=== PATIENT | male | born 2005 | race Caucasian/White ===

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

== ENCOUNTER 2024-05-11 15:25 | Emergency (ER) | payer BC, OTHER, SELFPAY ==
[2024-05-11 15:28] VITALS: BP 122/82
--- NOTE | 2024-05-11 15:44 | ED.GENMED ---
History of Present Illness
General
Chief Complaint: Catheter/Tube Problem
Source: patient, records and family
Exam Limitations: none
Time Seen by Provider: 05/11/24 15:35
Nursing documentation reviewed up to this point in time: agreed with
History of Present Illness
History of Present Illness:
18-year-old male with history of gastroparesis/chronic nausea and vomiting and chronic PICC line with TPN dependence to maintain weight presents to the emergency room with his parents for evaluation of PICC line occlusion. Patient reports that
about 5 days ago he started to have an issue where TPN pump would alarm and flow through his PICC line halted. It sounds like this has been a positional issue it seems to be somewhat worse when he lays on the left side. Somewhat better when he
lays flat on his back. Estimates that he is only got about 50% of the total amount of TPN that he is supposed over the past 5 days. He did go to urgent care today where he had an x-ray that confirmed appropriate placement; apparently they were
able to flush the PICC line but it was positional at urgent care and so he was referred to the ER to be evaluated. He denies any pain or swelling in the arm. Denies any physical complaints. PICC was placed by interventional radiology, last
exchange was 12/18/2023�originally PICC was on the right side but it was switched over to the left side due to difficulties with venous spasm at the time of catheter exchange.
Review of Systems
Review of Systems
All Other Systems: ROS reviewed and negative except as documented in HPI and ROS
Musculoskeletal: Denies joint pain, muscle pain or edema
Skin: Denies rash
Phy Exam
Physical Exam
Physical Exam:
General: Well appearing and non-toxic
HEENT: protecting airway
Neck: appears supple
CV: No evidence of cyanosis
Resp: No accessory muscle use
Abd: Non-distended
Extremities: No edema in the left upper extremity, good strong left radial pulse; has a PICC line in place left upper extremity 4 Danish single-lumen with no erythema, warmth, tenderness or induration around insertion site
Neuro: Alert
Psych: Normal affect
Skin: Intact
Scores
Heart Failure Risk
Heart Failure Risk Score: Not Applicable
Heart Score for Chest Pain Patients
STEMI patient?: Not applicable
Withdrawal Assessment of Alcohol
Withdrawal Assessment Completed?: Not applicable
Course
Orders/Labs/Results
Orders:
Orders
05/11/24 16:01
0.9% Sodium Chloride 1000 ml [Nss] 1,000 ml IV BOLUS
05/11/24 16:06
[facility] CONSULT Urgent
Consulting Provider: David Massey
Was physician already notified: Yes
Reason for Consult/Procedure: PICC replacement
Acknowledgement that appropriate orders are entered: Yes
05/11/24 17:07
PICC Line As Directed
Comment: remove LUE PICC and place RUE PICC
05/11/24 18:08
CR Chest - 2 Views Urgent
Comment:
Reason For Exam: PICC placement
05/11/24 19:00
Dextrose 5%/0.45%Sodchl 1000ML [D5/0.45%NaCl] 1,000 ml IV 125 mls/hr
Vital Signs
Initial and Last Documented VS:
Initial Vital Signs
Temp Pulse Resp BP Pulse Ox
36.7 C 73 16 122/82 98
05/11/24 15:28 05/11/24 15:28 05/11/24 15:28 05/11/24 15:28 05/11/24 15:28
Last Documented Vital Signs
Temp Pulse Resp BP Pulse Ox
36.7 C 73 16 121/83 98
05/11/24 15:28 05/11/24 15:28 05/11/24 15:28 05/11/24 18:39 05/11/24 15:28
MDM/Problems Addressed
Differential Diagnosis Includes:
PICC line occlusion
MDM/Problems Addressed:
18-year-old male presents with PICC line issue/occlusion�is having positional flow in the left upper extremity PICC line for 5 days. Had chest x-ray prior to arrival to urgent care which confirmed placement�disc available and we will upload it to
review. Contacted IV team to troubleshoot line. Will reassess after the above.
Reviewed x-ray of the chest and humerus and line appears intact and in place with tip terminating SVC. IV team down to bedside able to flush line but it is somewhat positional. Case discussed with IR to consider exchange.
Discussed with IR they will exchange PICC today. Discharge pending PICC exchange.
Discussed with [facility] physician as well as IV team and apparently there is an IV nurse that is available to exchange PICC in the ER. Will arrange for ER exchange.
IV team was able to exchange PICC line�attempted to place in the right upper extremity but unable to pass wire so it was replaced once again of the left upper extremity. Flushing freely. We were able to give a liter of fluid here. Chest x-ray
confirms appropriate positioning. Stable for discharge.
Chronic conditions affecting care:
Gastroparesis and TPN dependence
*Radiology
Radiology exam reviewed: preliminary read by ED provider
*Pulse Oximetry
Patient hypoxic: no
*Critical Care Note
Total Time (30-74mins, 75-104mins- exclusive of procedures): Not Applicable
Data Reviewed
Review of Other/Old Records Reveals: Labs and Records
Source: patient, records and family
Patient Management
Discussion with other providers: Sales And Marketing Professional (Discussed with interventional radiology)
ED Attending Note
-
Portions of this chart may have been created with voice recognition software.� Occasional wrong word or��sound alike� substitutions may have occurred due to the inherent limitations of voice recognition software.
Discharge Plan
Departure
Patient Disposition: Home (Routine Discharge)
Date of Disposition: 05/11/24
Time of Disposition: 18:50
Patient with high blood pressure during this ER visit?: No
Discharge Problem:
Occluded PICC line
Instructions: Peripherally-Inserted Central Catheter (DC)
Prescriptions:
No Action
Activated Charcoal [Charcoal, Activated] 280 MG Capsule
280 mg PO DAILY
clarithromycin 500 MG tablet
500 mg PO BID
nystatin 500,000 UNIT tablet
1,000,000 unit PO BID
niacin 50 MG tablet
25 mg PO DAILY
carvedilol 3.125 MG tablet
3.125 mg PO BID
colesevelam [WelChol] 625 MG tablet
312.5 mg PO DAILY
cholecalciferol (vitamin D3) 2,000 UNITS tablet
2,000 units PO DAILY
testosterone cypionate 50 MG/ML oil
0.25 ml SC WEEKLY
Activity Restrictions/Additional Instructions:
Thank you for visiting the Emergency Department at [facility].
1. Please schedule a follow up appointment as directed. Call first thing tomorrow morning to make an appointment.
2. If indicated, please take your medications as instructed and indicated on discharge paperwork.
3. If any of your symptoms do not improve, or persist, or become more severe within 6-12 hours, please return to the emergency department for further care.
4. Please return to the emergency department if you develop a headache, neck pain/stiffness, fever greater than 100.4F, chest pain, shortness of breath, persistent nausea, vomiting, slurred speech, difficulty walking, numbness/tingling, weakness,
signs of infection or any other symptoms that are worrisome to you.
Please call [phone] if you have any questions.
Interventions
Interventions:
*Risk Screen - Suicide Last Done: 05/11/24 18:20
*General Assessment Last Done: 05/11/24 15:49
*Neglect/Abuse Screening Last Done: 05/11/24 15:49
ED- Fall Risk Assessment Last Done: 05/11/24 15:49
*ED COVID-19 Vaccine History Last Done: 05/11/24 15:49
LG-Mdzwoj-Osrmxlldlq Assessment Last Done: 05/11/24 15:49
ED-Male Genitourinary Assessment Last Done: 05/11/24 15:49
Discharge Date and Time
Print Language: KOSOVAN
--- NOTE | 2024-05-11 16:10 | VATNOTE ---
Called to assess Left PICC as patient and parents state they are having difficulty with TPN infusion at night, pumps are alarming occlusion. They have tried changing pumps and tubings and still having the issue. PICC flushes easily with brisk blood
return, Xrays show no kinking in the PICC and tip placement is in the SVC. Physician to contact IR for further evaluation.
[2024-05-11] MEDS: NSS 1000 IV (16:22)
[2024-05-11 16:46] VITALS: BMI 22.0
--- NOTE | 2024-05-11 18:31 | VATNOTE ---
Attempted to place PICC in right arm unable to advance guide wire. Left PICC exchanged for a new PICC
[2024-05-11 18:39] VITALS: BP 121/83
== END 2024-05-11 18:54 | disposition home or self-care (01) ==
LOC: EMR 15:25
PROVIDERS: CONSULT PHYSICIAN Radiology Diagnostic Radiology; EMERGENCY PHYSICIAN Emergency Medicine; FAMILY PHYSICIAN Family Medicine
DX: Z45.2 Encounter for adjustment and management of vascular access device (principal); K31.84 Gastroparesis; R11.2 Nausea with vomiting, unspecified; G90.A Postural orthostatic tachycardia syndrome [POTS]; M41.9 Scoliosis, unspecified; Z90.49 Acquired absence of other specified parts of digestive tract; Z90.13 Acquired absence of bilateral breasts and nipples; Z88.8 Allergy status to other drugs, medicaments and biological substances
CPT/HCPCS: 99284; 96360; 71046

== ENCOUNTER → 2024-06-11 10:34 | Outpatient (REF) | payer BC, OTHER, SELFPAY ==
[2024-06-11 10:59] VITALS: BP 123/76; BP_SYST 65
== END ==
LOC: RADI 10:34
PROVIDERS: ATTENDING PHYSICIAN Pediatrics; FAMILY PHYSICIAN Family Medicine
DX: T82.594A Other mechanical complication of infusion catheter, initial encounter (principal); Y82.8 Other medical devices associated with adverse incidents
CPT/HCPCS: 36558; 76937; 77001; 99152; 99153

== ENCOUNTER 2025-04-16 23:32 | Inpatient (IN) | payer BC, OTHER, SELFPAY ==
[2025-04-16 19:57] VITALS: BP 121/89
[2025-04-16 20:29] LABS: Hematocrit 41.2 % (39.0-52.0); Hemoglobin 14.0 g/dL (13.0-18.0); Mean Corp Hgb Conc. 34.0 g/dL (33.0-37.0); Mean Corpuscular Volume 84.8 fL (80.0-94.0); Platelet Count 225 10^3/uL (130-400); Red Cell Dist. Width 12.0 % (11.5-14.5)
[2025-04-16 20:40] LABS: ALT (SGPT) 26 U/L (0-50); AST (SGOT) 25 U/L (17-59); Albumin 4.7 g/dl (3.5-5.0); Alkaline Phosphatase 128 U/L (38-126); Blood Urea Nitrogen 13 mg/dl (9-20); Calcium 9.8 mg/dl (8.4-10.2); Carbon Dioxide 27 mmol/L (22-30); Chloride 103 mmol/L (98-107); Glucose 86 mg/dl (70-99); Potassium 4.1 mmol/L (3.5-5.1); Sodium 141 mmol/L (135-145); Total Protein 9.0 g/dl (6.3-8.2); eGFR > 60.00
[2025-04-16 20:47] LABS: Nucleated Red Blood Cells % 0 % (-)
[2025-04-16 21:22] VITALS: BP 123/80
[2025-04-16 21:30] VITALS: BMI 20.8
[2025-04-16 22:04] LABS: C-Reactive Protein 66.00 mg/L (0.0-10.00)
--- NOTE | 2025-04-16 22:47 | ED.GENMED ---
History of Present Illness
General
Chief Complaint: Cold/Flu/URI Symptoms
Source: patient
Exam Limitations: none
Time Seen by Provider: 04/16/25 20:24
Nursing documentation reviewed up to this point in time: agreed with
History of Present Illness
History of Present Illness:
Note:
CHIEF COMPLAINT(S)
Fever and central line in situ.
HISTORY OF PRESENT ILLNESS
The patient is a 19-year-old male presenting with fever persisting for the past few days and a central line due to regular blood transfusions. The patient began antibiotic treatment today with doxycycline. The central line was last changed during
the patients previous hospital visit. The patient reports no prior infections related to the central line, and it appears normal upon inspection. The patient is undergoing evaluation for potential pneumonia or other infections, with plans for a
chest X-ray. The patient mentioned the completion of a recent steroid treatment cycle. Laboratory results indicate a white blood cell count of 11.8 K/uL, which could relate to the patients transfusions but is not alarmingly high. Blood cultures are
to be sent for analysis, acknowledging the possible influence of antibiotics on the culture results.
REVIEW OF SYSTEMS
- General: Fever present for the past few days.
- Infectious Diseases: The potential risk of central line-associated infection, considering the current fever.
- Hematology: Recent blood transfusions.
- Pulmonary: Concerns for possible pulmonary infection, with diagnostic imaging planned.
PHYSICAL EXAM
General: Alert, no acute distress.
Skin: Warm, dry.
Head: Normocephalic, atraumatic.
Neck: Supple, trachea midline.
Eye Ears, Nose, Mouth, and Throat: Oral mucosa moist.
Cardiovascular: Normal peripheral perfusion, No edema.
Respiratory: Respirations are non-labored.
Gastrointestinal: Abdomen nondistended.
Back: Normal range of motion, Normal alignment.
Musculoskeletal: Normal range of motion, normal strength.
Neurological: Alert and oriented to person, place, time, and situation, No focal neurological deficit observed.
Psychiatric: Cooperative, appropriate mood & affect.
PROBLEM LIST
- Acute Problems:
- Fever with possible central line infection
- Possible pneumonia
PLAN
- Obtain a chest X-ray to evaluate for pneumonia or other thoracic infections.
- Blood cultures to be sent to assess for possible infection, despite ongoing antibiotic treatment.
- Consultation with the IV team to assess the status of the central line.
- Continuation with doxycycline as an empirical treatment pending results.
DIFFERENTIAL DIAGNOSIS
The Differential Diagnosis includes, in no particular order and is not limited to:
1. Central line-associated bloodstream infection (CLABSI)
2. Community-acquired pneumonia
3. Viral infection
4. Bacterial sepsis
5. Endocarditis
6. Atypical pneumonia
7. Nosocomial infection
Disposition:
SUMMARY OF ENCOUNTER
The patient is a 19-year-old male presenting with a fever and a history of six weeks of bronchitis. Today, he started on doxycycline as prescribed by his family doctor. The patient has gastroparesis and requires total parenteral nutrition (TPN)
through a central line, with concern for a potential infection of the port in the right chest wall. The IV team evaluated the line and determined it did not appear infected. Due to the elevated white blood cell count, C-reactive protein (CRP), and
sedimentation rate, along with pending blood culture results, the decision was made to admit the patient for further evaluation and treatment.
DISPOSITION
Admit
ASSESSMENT
The patient presents with fever potentially related to central line infection or bronchitis. Elevated inflammatory markers were noted, indicating the possibility of an underlying infection.
PLAN
The patient is admitted for further evaluation, including awaiting blood culture results to guide treatment. Continuous monitoring and management of the central line and further investigation into the elevated inflammatory markers will be conducted.
The continuation of doxycycline will be considered based on culture sensitivity results.
INDEPENDENT REVIEW OF LABS AND INTERPRETATION OF TESTS
My independent review of CBC indicates leukocytosis. CRP and sedimentation rate are both elevated, indicating inflammation.
MEDICATION RECONCILIATION
The patient was started on doxycycline today as management for potential bronchitis and possible infection.
MEDICAL DECISION MAKING
- Number and Complexity of Problems Addressed: Chronic conditions affecting care include gastroparesis and the need for TPN. Differential diagnosis includes central line-associated bloodstream infection (CLABSI), community-acquired pneumonia, viral
infection, bacterial sepsis, endocarditis, atypical pneumonia, nosocomial infection, transfusion-related febrile reaction, medication-related fever, and fungal infection.
- Data:
- Category 1: I reviewed the elevated white blood cell count, CRP, and sedimentation rate. Blood cultures ordered and pending results.
- Category 3: Discussion with the IV team about the status of the central line.
- Risk: Admission was considered necessary due to increased risk of complications from potential infections and the patients underlying medical condition.
DIAGNOSIS
- Fever, unspecified (R50.9)
- Suspected central line-associated bloodstream infection (CLABSI) (N93.0)
- Acute bronchitis (J20.9)
- Gastroparesis (K31.84)
Phy Exam
Physical Exam
Physical Exam:
.
Course
Orders/Labs/Results
Orders:
Orders
04/16/25 20:09
Complete Blood Count/With Diff Urgent
Comprehensive Metabolic Panel Urgent
Lactic Acid Urgent
Blood Culture Urgent
KANDY Source: Blood/Venous
Specimen Description:
04/16/25 20:23
CR Chest - 2 Views Urgent
Comment:
Reason For Exam: cough
04/16/25 21:29
Blood Culture Q30M
KANDY Source: Blood/Venous
Specimen Description:
04/16/25 21:35
CRP [C-Reactive Protein] Urgent
Sed Rate [Erythrocyte Sed Rate] Urgent
Blood Culture Q30M
KANDY Source: Blood/Venous
Specimen Description:
04/16/25 23:31
Admit/Transfer Patient As Directed
Co-Sign Provider:
Level of Care: Inpatient admission
Assign to:: Medical/Surgical
Physician / Group: shelia
Diagnosis: sepsis unclear source
Reason for Hospitalization: sepsis unclear source
Expected length of stay greater than two midnights?: Yes
ELOS- Estimated Length of Stay in days: 2
I certify the patient meets the requirements for IP care: Yes
Code Status As Directed
Resuscitation Status: Full Code
PRN Pain Medication Management As Directed
May give lesser potent ordered pain med per pt: Yes
preference::
Protocol:: Medication orders for pain may be administered in a
manner that supports deferring to patient preference
when the pt is:
- Requesting an ordered lesser potent pain medication.
Least to most potent pain medications are defined
as: acetaminophen < NSAID < tramadol < opioids
(morphine, oxycodone, hydromorphone).
- Requesting a lesser dose of the same medication IF
ORDERED.
- Requesting a less intrusive route of administration
if both routes are prescribed by the provider (PO <
IV).
04/16/25 23:33
CT Chest W/o Iv Contrast Urgent
Comment:
Reason For Exam: sepsis, unresolving bronchitis
04/16/25 23:44
0.9% Sodium Chloride 500 ml [Nss] 500 ml IV BOLUS
04/17/25 01:02
Acetaminophen [Tylenol] 650 mg PO Q4HPRN PRN
Dextrose 5%/0.9%Sodchl 1000 ml [D5/0.9% Sodium Chloride] 1,000 ml IV 100 mls/hr
Piperacillin/Tazo 3.375 Gram [Zosyn] 3.375 gram in 50 ml IV Q6H
VANCOMYCIN Pharmacy to Dose [VANCOCIN Pharmacy to Dose] 1 each Pharmacy To Prepare [Call Pharmacy To Prepare] 0 ml IV PER PROTOCOL
04/17/25 01:02
Consult Notification Routine
Specialty to Notify: Infectious Disease
INFECTIOUS DISEASE CONSULT Routine
Consulting Provider: Josie Turner
Was physician already notified: No
Reason for consult: central line infection?
Activity As Directed
Activity Level: As Tolerated
Vital Signs As Directed
Frequency: Per unit guidelines
DX Deep Vein Thrombosis Video Routine
04/17/25 06:00
Complete Blood Count/With Diff IN AM
Comprehensive Metabolic Panel IN AM
04/17/25 08:00
Heparin 5,000 units SC Q12
04/17/25 Dinner
Regular
Abnormal Lab Results
04/16/25 04/16/25
20:09 21:35
WBC 11.8 H 10^3/uL
(4.8-10.8)
Absolute Monos (auto) 0.7 H 10^3/uL
(0.1-0.6)
Absolute Eos (auto) 3.8 H 10^3/uL
(0-0.7)
Lymphocytes % 15.2 L %
(20.5-51.1)
Eosinophils % 32.2 H %
(0-6)
ESR 53 H mm/hour
(0-20)
Alkaline Phosphatase 128 H U/L
(38-126)
C-Reactive Protein 66.00 H mg/L
(0.0-10.00)
Total Protein 9.0 H g/dl
(6.3-8.2)
04/16/25 20:09
04/16/25 20:09
Vital Signs
Initial and Last Documented VS:
Initial Vital Signs
Temp Pulse Resp BP Pulse Ox
99.7 F 129 24 121/89 97
04/16/25 19:57 04/16/25 19:57 04/16/25 19:57 04/16/25 19:57 04/16/25 19:57
Last Documented Vital Signs
Temp Pulse Resp BP Pulse Ox
99.7 F 111 16 121/76 98
04/16/25 23:40 04/17/25 01:37 04/16/25 23:40 04/17/25 01:37 04/17/25 01:37
*Pulse Oximetry
SaO2: 98
Oxygen Mode of Delivery: Room air
Patient hypoxic: no
*Critical Care Note
Total Time (30-74mins, 75-104mins- exclusive of procedures): Not Applicable
ED Attending Note
-
Portions of this chart may have been created with voice recognition software.� Occasional wrong word or��sound alike� substitutions may have occurred due to the inherent limitations of voice recognition software.
Discharge Plan
Departure
Patient Disposition: Admit
Date of Disposition: 04/16/25
Time of Disposition: 22:47
Presentation/result/management discussed w/ accepting MD/DO: Hospitalist
Discharge Problem:
Fever, Indwelling chest port, possible infection
Interventions
Interventions:
*Risk Screen - Suicide Last Done: 04/16/25 22:00
*General Assessment Last Done: 04/16/25 19:57
*Neglect/Abuse Screening Last Done: 04/16/25 22:00
*ED- Fall Risk Assessment Last Done: 04/16/25 22:00
*ED COVID-19 Vaccine History Last Done: 04/16/25 22:00
ED- Pulmonary Assessment Last Done: 04/16/25 22:00
--- NOTE | 2025-04-16 23:15 | EDRN ---
Hospitalist in at bedside working on admission
--- NOTE | 2025-04-16 23:41 | HPS.HSE ---
Family Physician
-
Family Physician: Cornelio Paez
Chief Complaint
-
fever
History of Present Illness
19-year-old male past medical history of gender affirming surgery, pots disease, gastroparesis status post gastric stimulator on TPN through central line placed 18 months ago, prior PICC lines, history of bronchitis 5 years ago, scoliosis,
presenting with ongoing cough for the past 6 weeks. He was diagnosed with acute bronchitis and treated with 10-day course of steroids without improvement. Yesterday he developed fever of 102. He went to urgent care today and was started on
doxycycline. Patient decided to come to the hospital because he was told that he should come to the hospital for fever given central line.
Patient has chronic vomiting secondary to gastroparesis. He sometimes can eat a little bit but typically vomits after eating. He has not had TPN in 48 hours. Denies abdominal pain or diarrhea.
He follows with [facility] for the gastric stimulator. Follows with for the central line and TPN with Dr. Bowman.
Denies smoking, alcohol or drugs.
Medical History
Past Medical History
Past Medical History: Reports Other (gender affirming surgery, pots disease, gastroparesis status post gastric stimulator on TPN through central line placed 18 months ago, prior PICC lines, history of bronchitis 5 years ago, scoliosis)
Past Surgical History: Reports Other (Cholecystectomy, gastric stimulator, TPN Central line, prior PICC lines,)
Social History
Tobacco: Non-smoker
Alcohol: None
Drug: None
Family History
Family History: Not pertinent
Allergies / Home Medications
Allergies reflects when Allergies were last updated in [employer].
Home Medications with original date entered in [employer]
Allergy/Medication List:
Allergies
Allergy/AdvReac Type Severity Reaction Status Date / Time
chlorhexidine Allergy Rash Verified 04/16/25 19:57
Home Medications
Activated Charcoal [Charcoal, Activated] 280 mg PO DAILY 02/04/22
carvedilol 3.125 mg tablet 3.125 mg PO BID 02/04/22
cholecalciferol (vitamin D3) 50 mcg (2,000 unit) tablet 2,000 units PO DAILY 02/04/22
clarithromycin 500 mg tablet 500 mg PO BID 02/04/22
colesevelam 625 mg tablet (WelChol) 312.5 mg PO DAILY 02/04/22
niacin 50 mg tablet 25 mg PO DAILY 02/04/22
nystatin 500,000 unit tablet 1,000,000 unit PO BID 02/04/22
testosterone cypionate 50 mg/mL intramuscular oil 0.25 ml SC WEEKLY 02/04/22
Review of Systems
-
History Source: Patient
A 12 point ROS was completed and negative except as noted: Yes
Constitutional: Reports No Symptoms
EENT: Reports No Symptoms
Respiratory: Reports See HPI
Cardiac: Reports No Symptoms
Abdomen/GI: Reports No Symptoms
: Reports No Symptoms
Musculoskeletal: Reports No Symptoms
Skin: Reports No Symptoms
Neurological: Reports No Symptoms
Endocrine: Reports No Symptoms
Hematologic/Lymphatic: Reports No Symptoms
Psych: Reports No Symptoms
Physical Exam
Vital Signs
Vital Signs
Temp Pulse Resp BP Pulse Ox
99.7 F 114 16 123/80 96
04/16/25 23:40 04/16/25 23:40 04/16/25 23:40 04/16/25 21:22 04/16/25 23:40
Physical Exam
General: Well Developed, Well Nourished and No Apparent Distress
HEENT: NormoCephalic, Moist mucous membranes and Atraumatic
Respiratory: Clear
Cardiac: S1/S2 and Regular Rhythm; No Murmur or Rub
GI: Soft, Non Tender, Non Distended and Normal Bowel Sounds; No Organomegaly
Rectal: Deferred by Provider
Musculoskeletal: No Clubbing, No Cyanosis and No Edema
Skin: No Rash
Neuro: Nonfocal/grossly intact
Laboratory Results
-
04/16/25 20:09
04/16/25 20:09
Laboratory Results
Lactic Acid 1.0 mmol/L (0.7-2.0) 04/16/25 20:09
Total Bilirubin 1.0 mg/dl (0.2-1.3) 04/16/25 20:09
AST 25 U/L (17-59) 04/16/25 20:09
ALT 26 U/L (0-50) 04/16/25 20:09
Alkaline Phosphatase 128 U/L (38-126) H 04/16/25 20:09
Data Reviewed
-
Lab Data: Labs Reviewed by me
Old Records: Reviewed
Impression/Plan
-
IMPRESSION:
PLAN:
# Sepsis (fever, tachycardia) concerning for potential pneumonia versus central line associated infection
- Blood cultures x 2, blood culture from port sent
- Check CT chest due to ongoing bronchitis symptoms that have not resolved
- IV fluids with D5 given that he has not been on TPN for 48 hours, and concern for potential central line infection that would warrant not using central line now
- Vancomycin, Zosyn
- ID consulted
# Acute bronchitis
- Ongoing for 6 weeks without improvement with prednisone
POTS disease
Gastroparesis status post gastric stimulator on TPN through central line
- Central line placed 18 months ago
- Patient can tolerate small amounts of Ensure/food without vomiting, will allow
Prior history of bronchitis 5 years ago
History of gender affirming surgery
- Patient on testosterone
Scoliosis
Anxiety
- Continue BuSpar
Full code
DVT prophylaxis�heparin
Regular diet
[2025-04-17] MEDS: NSS 500 IV (00:16)
[2025-04-17] MEDS: D5/0.9% SODIUM CHLORIDE 1000 IV ×3 (01:32→22:55)
[2025-04-17] MEDS: ZOSYN 50 IV ×2 (01:33→08:41)
[2025-04-17 01:37] VITALS: BP 121/76
[2025-04-17] MEDS: TYLENOL 650 MG PO (01:37)
[2025-04-17] MEDS: VANCOCIN 530 MG IV (01:54)
--- NOTE | 2025-04-17 02:40 | EDRN ---
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
stopped at this time as well.
[2025-04-17] MEDS: BENADRYL 25 MG IV (02:43)
--- NOTE | 2025-04-17 02:46 | W.PN.UPDATE ---
Update Note
Progress Note Update
Called to bedside by ED RN. Patient receiving Vancomycin, received approximately 230 mls of 530 ml infusion. Patients face/head, anterior and posterior torso is red and warm. Patient states he feels warm on his face and torso. Patient with no
complaints of SOB, trouble swallowing, palpitations, lightheadedness. Patient stated he has had Vancomycin previously with no allergic response. Vancomycin discontinued at this time. Ordered Benadryl 25 mg IV x 1 now and Benadryl 25 mg IV PRN for
ongoing allergic response. Pt received and tolerated full dose of Zosyn IV antibiotics as ordered.
[2025-04-17 02:59] VITALS: BP 116/49
--- NOTE | 2025-04-17 02:59 | EDRN ---
Patient's redness and hives are going down, patient reports starting to feel better
--- NOTE | 2025-04-17 03:31 | EDRN ---
mom (harshad): [phone]
Dad (scot): [phone]
[2025-04-17 04:39] VITALS: BMI 20.9
[2025-04-17 05:00] VITALS: BP 94/60
--- NOTE | 2025-04-17 05:15 | PTCARENOTE ---
Patient arrived from the ED via stretcher at approximately 0430. Patient ambulated self from stretcher to bed - gait steady. Patient AAOx3. VSS as documented. Assessment as documented. Patient oriented to room. Bed in lowest position. Call segundo
within reach.
[2025-04-17 07:39] VITALS: BP 97/61
[2025-04-17 07:45] LABS: Hematocrit 33.5 % (39.0-52.0); Hemoglobin 11.4 g/dL (13.0-18.0); Mean Corp Hgb Conc. 34.0 g/dL (33.0-37.0); Mean Corpuscular Volume 85.2 fL (80.0-94.0); Platelet Count 197 10^3/uL (130-400); Red Cell Dist. Width 12.0 % (11.5-14.5)
[2025-04-17 07:50] LABS: ALT (SGPT) 17 U/L (0-50); AST (SGOT) 19 U/L (17-59); Albumin 3.3 g/dl (3.5-5.0); Alkaline Phosphatase 93 U/L (38-126); Blood Urea Nitrogen 12 mg/dl (9-20); Calcium 8.4 mg/dl (8.4-10.2); Carbon Dioxide 26 mmol/L (22-30); Chloride 108 mmol/L (98-107); Estimated Creatinine Clearance 102 ml/min; Glucose 110 mg/dl (70-99); Potassium 4.1 mmol/L (3.5-5.1); Sodium 139 mmol/L (135-145); Total Protein 6.3 g/dl (6.3-8.2); eGFR > 60.00
[2025-04-17] MEDS: HEPARIN 5000 UNITS SC (08:40)
[2025-04-17 09:41] LABS: Nucleated Red Blood Cells % 0 % (-)
--- NOTE | 2025-04-17 12:53 | CON.ID ---
Consultation
-
Date/Time Consultation Requested: 04/17/2025 0102
Date/Time Consultation Performed: 04/17/2025 1253
Requesting Provider: Dr. Acuna
Performing Provider: Dr. Mace
Reason for Consultation: Central line infection
Chief Complaint / Past History
History of Present Illness
Caesar Cano is a 19-year-old being evaluated at the request of Dr. Acuna regarding fever. History is obtained from chart review, along with patient interview.
According to reviewed history, the patient was in his usual state of health until approximately 4 to 5 weeks ago when he developed an acute cough. Approximately a week into symptomatology contacted his PCP and was given an albuterol inhaler. After
several more weeks (? 2-3 weeks) the patient was seen at an urgent care where the diagnosis of bronchitis was made. Patient was given an oral steroid taper over the next 10 days. He reports that he finished this approximately 2 weeks ago, but may
be off on the dates.
More recently, he developed fever over the past 3-4 nights with the highest temperature being recorded as 102.9 degrees. He persists in a cough, and it remains nonproductive at this time. He denies any chest pain. He denies any hemoptysis. He
notes no sick contacts.
He is a studying [employer]. At home, he has 1 dog and 2 birds (a cockatiel and another type of bird) he has had the birds for approximately 6 years and they are noted to be healthy. He denies any travel other than that to [facility] in
September.
Past History
Additional Past Medical History:
POTS
Gastroparesis; on TPN
Additional Past Surgical History:
Gender surgery
Gastric stimulator
Cholecystectomy
Allergy History:
vancomycin Allergy (Intermediate, Verified 04/17/25 02:58)
Rash
chlorhexidine Allergy (Verified 04/16/25 19:57)
Rash
Medications Reviewed: Yes
Current Antibiotics:
Zosyn 3.375 gm IV q.6 hours
Vancomycin - discontinued
Social History
Tobacco: Non-Smoker
Alcohol: None
Drug: None
Personal: Single
Living: With Family
Employment: Other (Student)
Family History
Family History: Not Pertinent
Review of Systems
Vital Signs
Temp Pulse Resp BP Pulse Ox
98.1 F 77 18 97/61 96
04/17/25 07:39 04/17/25 07:39 04/17/25 07:39 04/17/25 07:39 04/17/25 10:41
Physical Exam
Physical Exam
Constitutional: No Acute Distress, Comfortable and Non-toxic
Eyes: No Conjunctival Hemorrhage and Sclera Anicteric
Oral: No Thrush and No Ulcers
Cardiovascular: Regular Rate and S1/S2; Negative S3/S4
Pulmonary: Clear; Negative Wheezes, Rales or Rhonchi
Gastrointestinal: Soft, Non Tender, Non Distended and Normal Bowel Sounds
Extremities: Negative Edema, Cyanosis or Erythema
Skin: Warm and Dry; Negative Rash or Jaundice
Neurological: Awake and Alert
Lab / Diagnostic Study Results
04/17/25 06:21
04/17/25 06:21
Abs Immat Gran (auto) 0.0 10^3/uL (0-0.05) 04/17/25 06:21
Absolute Neuts (auto) 6.9 10^3/uL (1.4-6.5) H 04/17/25 06:21
Absolute Lymphs (auto) 1.8 10^3/uL (1.2-3.4) 04/17/25 06:21
Absolute Monos (auto) 1.0 10^3/uL (0.1-0.6) H 04/17/25 06:21
Absolute Basos (auto) 0.1 10^3/uL (0-0.2) 04/17/25 06:21
Immature Gran % 0.3 % (0-0.5) 04/17/25 06:21
Neutrophils % 51.8 % (42.2-75.2) 04/17/25 06:21
Lymphocytes % 13.5 % (20.5-51.1) L 04/17/25 06:21
Monocytes % 7.7 % (1.7-9.3) 04/17/25 06:21
Eosinophils % 25.9 % (0-6) H 04/17/25 06:21
Basophils % 0.8 % (0-2) 04/17/25 06:21
ESR 53 mm/hour (0-20) H 04/16/25 21:35
Lactic Acid 1.0 mmol/L (0.7-2.0) 04/16/25 20:09
C-Reactive Protein 66.00 mg/L (0.0-10.00) H 04/16/25 21:35
Microbiology Results
Micro:
04/16/25 21:29 Blood Culture - Pending
Blood/Venous
04/16/25 21:35 Blood Culture - Pending
Blood/Venous
04/16/25 20:09 Blood Culture - Pending
Blood/Venous
Assessment / Plan
Nonproductive cough
Suspected bronchitis
Leukocytosis with eosinophilia
POTS
Gastroparesis; on chronic TPN
Recommendations:
CT imaging is not impressive for the findings of pulmonary infiltrates.
The hx of johanna pets is noted, raising possibility of psittacosis.
Discontinue further Zosyn and begin doxycycline.
Trend eosinophilia; patient may require further and additional workup to determine etiology.
Follow temperature curve closely.
Check serology for Chlamydophila�species (C. psittaci,�C. pneumoniae)
Care Review
Plan reviewed with: Physician (Hospitalist)
--- NOTE | 2025-04-17 12:54 | W.PN.HOSP.TC ---
Addendum entered and electronically signed by Alf Bell DO 04/18/25 15:59:
Sepsis was ruled out
Original Note:
Today's Communication/Plan
-
Assessment / Plan
Assessment / Plan
General: No Apparent Distress, Comfortable and Conversant
HEENT: NormoCephalic, Moist mucous membranes, Atraumatic
Respiratory: Clear and Non Labored Respirations
Cardiac: S1/S2 and Regular Rhythm; No Rub or Gallop, right chest central line
GI: Soft, Non Tender, Non Distended and Normal Bowel Sounds
Musculoskeletal: No Edema, no deformity
Skin: Warm and dry
: NO [place]
Neuro: Awake, Alert, Nonfocal/grossly intact
Psych: Calm and Intact Judgment/Insight
Mr. Cano is a 19-year-old male with a medical history of pots disease, gastroparesis (status post gastric stimulator, on TPN via central line for the past 18 months), bronchitis, scoliosis, and gender affirming surgery who presents with fever
and persistent cough. His cough has been ongoing for the past 6 weeks but his fever is new. He was seen in urgent care for his fever and started on doxycycline. However he decided to pursue further evaluation in the ED considering fever and the
fact that he has a central line. He has not had any TPN for over 48 hours. He was admitted for further evaluation and management of fever with unknown source, suspect pulmonary.
Fever and cough:
- Suspect pulmonary infection, less likely central line infection
- Chest CT shows nonspecific bilateral pulmonary nodules likely related to inflammation pulmonary follow-up to rule out potential malignancy
- Elevated ESR and CRP
- Started on broad-spectrum antibiotics, however developed 'red man' syndrome overnight with vancomycin administration which was discontinued
- Blood and central line cultures negative to date
- Continuing antibiotics with Zosyn for now
- Follow-up Legionella and strep pneumo urinary antigens, sputum culture
- To be evaluated by ID
- Elevated eosinophil count, will follow-up ID recommendations, consider pulm involvement
Gastroparesis:
- Continue TPN once confident that we are not dealing with a central line infection
- Continue IV fluids with dextrose in the meantime
DVT prophylaxis: Subcu heparin
CODE STATUS: Full code
Total time spent on today's encounter was 54 minutes
Anticipated Discharge: 24 - 48 hours
Subjective/Interval History
-
Date of Service: April 17, 2025
Patient was seen and examined at bedside this morning. Currently comfortable, still with intermittent cough. Developed 'red man' syndrome overnight with vancomycin administration.
Objective Data
-
Labs:
Laboratory Results
04/17/25
06:21
WBC 13.3 H
Hgb 11.4 L
Hct 33.5 L
Plt Count 197
Sodium 139
Potassium 4.1
Chloride 108 H
Carbon Dioxide 26
BUN 12
Creatinine 0.9
Glucose 110 H
Calcium 8.4
Total Bilirubin 1.0
AST 19
ALT 17
Alkaline Phosphatase 93
Vital Signs:
Vital Signs
Temp Pulse Resp BP Pulse Ox
98.1 F 77 18 97/61 96
04/17/25 07:39 04/17/25 07:39 04/17/25 07:39 04/17/25 07:39 04/17/25 10:41
Review of Systems
-
History Source: Patient
All other systems: Reviewed and negative
Respiratory: Reports Cough
Physical Exam
-
General: No Apparent Distress
[2025-04-17] MEDS: VIBRAMYCIN 260 MG IV (14:46)
[2025-04-17 15:12] VITALS: BP 110/73
--- NOTE | 2025-04-17 16:36 | CM ---
Met with patient and father at the bedside
Pharmacy verified: [facility] @ [address] [facility]
Lives with parents; multilevel home; 2 steps to enter; powder room 1st floor; 14 steps to his 2nd floor bed/bath; bath has tub w/ shower
PLOF: independent with ambulation, stairs, ADLs; shirt sewer student
Patient has a PICC line for TPN infusions; home services with [facility]
Has a Gastric stimulator implant
One of his parents will provide transport home
Plan: anticipate discharge to home; case management will monitor for needs/services
[2025-04-17] MEDS: HEPARIN SC (20:57)
[2025-04-17] MEDS: ROBITUSSIN DM 5 ML PO (21:42)
[2025-04-17 23:20] VITALS: BP 107/66
[2025-04-18] MEDS: VIBRAMYCIN 260 MG IV (02:03)
[2025-04-18 06:37] LABS: Hematocrit 34.4 % (39.0-52.0); Hemoglobin 11.4 g/dL (13.0-18.0); Mean Corp Hgb Conc. 33.1 g/dL (33.0-37.0); Mean Corpuscular Volume 84.5 fL (80.0-94.0); Platelet Count 211 10^3/uL (130-400); Red Cell Dist. Width 12.2 % (11.5-14.5)
[2025-04-18 07:05] VITALS: BP 96/61
[2025-04-18 07:06] LABS: Blood Urea Nitrogen 4 mg/dl (9-20); Calcium 8.1 mg/dl (8.4-10.2); Carbon Dioxide 27 mmol/L (22-30); Chloride 110 mmol/L (98-107); Estimated Creatinine Clearance > 125 ml/min; Glucose 112 mg/dl (70-99); Magnesium 1.7 mg/dl (1.6-2.3); Potassium 4.1 mmol/L (3.5-5.1); Sodium 141 mmol/L (135-145); eGFR > 60.00
[2025-04-18 07:38] LABS: Nucleated Red Blood Cells % 0 % (-)
[2025-04-18] MEDS: D5/0.9% SODIUM CHLORIDE 1000 IV (09:12)
[2025-04-18] MEDS: HEPARIN SC (09:39)
--- NOTE | 2025-04-18 12:38 | W.PN.ID1 ---
Date of Service
Date of Service: April 18, 2025
Today's Communication
Transition doxycycline to Azithromycin.
Assessment / Plan
Nonproductive cough
Suspected bronchitis
Leukocytosis with eosinophilia
POTS
Gastroparesis; on chronic TPN
Recommendations:
CT imaging is not impressive for the findings of pulmonary infiltrates.
The hx of johanna pets is noted, raising possibility of psittacosis.
White count noted to be normalized today.
Transition to oral Azithromycin 500 mg x 1. Thereafter, continue with 250 mg by mouth daily x 4 days.
Trend eosinophilia; patient may require further and additional workup (i.e. HemeOnc evaluation) to determine etiology, which can be performed as an outpatient. This has been reviewed with the patient and his father in detail.
Checking serology for Chlamydophila�species (C. psittaci,�C. pneumoniae). Legionella and pneumococcal urinary antigens are negative.
If patient tolerates Azithromycin, no contraindication to discharge from a Infectious Diseases standpoint.
Chief Complaint
-: Leukocytosis
Subjective / Review of Systems
Patient seen and examined. Reports ongoing cough. No fevers.
Review of Systems: No Fever
Vital Signs / Physical Exam
Vital Signs
Vital Signs
Temp Pulse Resp BP Pulse Ox
98.2 F 83 16 96/61 97
04/18/25 07:05 04/18/25 07:05 04/18/25 07:05 04/18/25 07:05 04/18/25 07:05
Physical Exam
Constitutional: No Acute Distress, Comfortable and Non-toxic
Cardiovascular: S1/S2; Negative S3/S4
Pulmonary: Clear and Non Labored; Negative Wheezes, Rales or Rhonchi
Gastrointestinal: Soft and Non Distended
Neurological: Awake and Alert
Psychological: Calm
Objective Data
Lab Data
Lab Results
04/18/25 05:54
04/18/25 05:54
ESR 53 mm/hour (0-20) H 04/16/25 21:35
Estimated Creat Clear > 125 ml/min 04/18/25 05:54
Lactic Acid 1.0 mmol/L (0.7-2.0) 04/16/25 20:09
Total Bilirubin 1.0 mg/dl (0.2-1.3) 04/17/25 06:21
AST 19 U/L (17-59) 04/17/25 06:21
ALT 17 U/L (0-50) 04/17/25 06:21
Alkaline Phosphatase 93 U/L (38-126) 04/17/25 06:21
C-Reactive Protein 66.00 mg/L (0.0-10.00) H 04/16/25 21:35
Most recent labs reviewed.
Micro Results:
04/16/25 21:29 Blood Culture - Preliminary
Blood/Venous No Growth in 24 hours- Final report to follow
04/16/25 21:35 Blood Culture - Preliminary
Blood/Venous No Growth in 24 hours- Final report to follow
04/16/25 20:09 Blood Culture - Preliminary
Blood/Venous No Growth in 24 hours- Final report to follow
04/17/25 15:06 Legionella Urinary Antigen - Final
Urine Negative for Legionella pneumophila Serogroup 1 antigen.
A negative result does not rule out the possiblity of
Legionella infection due to other serogroups or species of
Legionella. Clinical correlation is recommended.
Streptococcus pneumoniae Antigen (M - Final
Negative for Streptococcus pneumoniae antigen.
A negative result does not exclude infection with
Streptococcus pneumoniae. Clinical correlation is
recommended.
Care Review
Plan reviewed with: Physician (Hospitalist)
[2025-04-18 12:40] VITALS: BMI 20.7
[2025-04-18] MEDS: ZITHROMAX 500 MG PO (12:48)
[2025-04-18 14:32] VITALS: BMI 20.7
--- NOTE | 2025-04-18 14:34 | W.DCSUMMARY ---
Discharge Summary
Discharge Data
Date of Admission: 04/16/25
Date of Discharge: 04/18/25
Total time spent discharging patient (in min): 56
-
Pending Results: No
Hospital Course
Mr. Cano is a 19-year-old male with a medical history of pots disease, gastroparesis (status post gastric stimulator, on TPN via central line for the past 18 months), bronchitis, scoliosis, and gender affirming surgery (on weekly subcu
testosterone injections) who presented with fever and persistent cough. His cough had been ongoing for the past 6 weeks but his fever is new. He was seen in urgent care for his fever and started on doxycycline. However he decided to pursue
further evaluation in the ED considering fever and the fact that he has a central line. He was admitted for further evaluation and management of fever with unknown source.
His ESR and CRP were elevated. He had a leukocytosis with eosinophilia. CT imaging of his chest showed nonspecific findings including bilateral scattered pulmonary nodules likely inflammatory, however will need follow-up to rule out potential
malignancy although this is less likely. He was initially started on broad-spectrum antibiotics with vancomycin and Zosyn. However he developed 'red man' syndrome with vancomycin administration which was subsequently discontinued. His strep
pneumo and Legionella urinary antigens were negative. He remained afebrile throughout his hospitalizations and his blood cultures remain negative to date. He was evaluated by the infectious disease team who started a workup for possible
psittacosis considering his history of johanna pets. These labs are still pending and can be followed up on in the outpatient setting. It is likely that his cough is due to bronchitis. His antibiotics have been switched to azithromycin and he will
be discharged to home with a prescription for 4 more days of azithromycin to complete a total 5-day course. He has been given a referral to follow-up with hematology for further evaluation of his eosinophilia. He has also been given a referral to
follow-up with pulmonology for further evaluation of his persistent cough and scattered lung nodules, which are likely due to current information but do need to be monitored. At the time of hospital discharge he was medically stable. He will also
need close follow-up with his primary care physician.
General: No Apparent Distress, Comfortable and Conversant
HEENT: NormoCephalic, Moist mucous membranes, Atraumatic
Respiratory: Clear and Non Labored Respirations
Cardiac: S1/S2 and Regular Rhythm; No Rub or Gallop, right chest central line
GI: Soft, Non Tender, Non Distended and Normal Bowel Sounds
Musculoskeletal: No Edema, no deformity
Skin: Warm and dry
: NO [place]
Neuro: Awake, Alert, Nonfocal/grossly intact
Psych: Calm and cooperative
Discharge Plan
-
Patient Disposition: Home (Routine Discharge)
Discharge Diagnosis/Procedures: Cough, bronchitis, eosinophilia
Activity Restrictions/Additional Instructions:
Mr. Cano is a 19-year-old male with a medical history of pots disease, gastroparesis (status post gastric stimulator, on TPN via central line for the past 18 months), bronchitis, scoliosis, and gender affirming surgery (on weekly subcu
testosterone injections) who presented with fever and persistent cough. His cough had been ongoing for the past 6 weeks but his fever is new. He was seen in urgent care for his fever and started on doxycycline. However he decided to pursue
further evaluation in the ED considering fever and the fact that he has a central line. He was admitted for further evaluation and management of fever with unknown source.
His ESR and CRP were elevated. He had a leukocytosis with eosinophilia. CT imaging of his chest showed nonspecific findings including bilateral scattered pulmonary nodules likely inflammatory, however will need follow-up to rule out potential
malignancy although this is less likely. He was initially started on broad-spectrum antibiotics with vancomycin and Zosyn. However he developed 'red man' syndrome with vancomycin administration which was subsequently discontinued. His strep
pneumo and Legionella urinary antigens were negative. He remained afebrile throughout his hospitalizations and his blood cultures remain negative to date. He was evaluated by the infectious disease team who started a workup for possible
psittacosis considering his history of johanna pets. These labs are still pending and can be followed up on in the outpatient setting. It is likely that his cough is due to bronchitis. His antibiotics have been switched to azithromycin and he will
be discharged to home with a prescription for 4 more days of azithromycin to complete a total 5-day course. He has been given a referral to follow-up with hematology for further evaluation of his eosinophilia. He has also been given a referral to
follow-up with pulmonology for further evaluation of his persistent cough and scattered lung nodules, which are likely due to current information but do need to be monitored. At the time of hospital discharge he was medically stable. He will also
need close follow-up with his primary care physician.
Referrals:
Diana Padron MD [Active, Pulmonary Medicine]
Referral Note: persistent cough, eosinophilia
Shea Mueller DO [Active, Hematology / Oncology]
Referral Note: eosinophilia w/ persistent cough
Cornelio Paez DO [Family Provider, [facility]]
Prescriptions:
New
azithromycin 250 mg tablet
250 mg PO DAILY 4 Days Qty: 4 0RF
Rx Instructions:
take for 4 days starting 04/19/2025 to complete a total 5 day course.
Continued
Activated Charcoal [Charcoal, Activated] 280 MG Capsule
280 mg PO DAILY
clarithromycin 500 MG tablet
500 mg PO BID
nystatin 500,000 UNIT tablet
1,000,000 unit PO BID
niacin 50 MG tablet
25 mg PO DAILY
carvedilol 3.125 MG tablet
3.125 mg PO BID
colesevelam [WelChol] 625 MG tablet
312.5 mg PO DAILY
cholecalciferol (vitamin D3) 2,000 UNITS tablet
2,000 units PO DAILY
testosterone cypionate 50 MG/ML oil
0.25 ml SC WEEKLY
Discharge Orders:
Discharge Patient (As Directed); Ordered 04/18/25
Ordered By: Alf Bell
Discharge Date and Time
Print Language: BENGALI
--- NOTE | 2025-04-18 14:59 | CM ---
Chart reviewed and patient to return to home today with parents.
Plan; Home with [facility] to resume home TPN.
[facility]
--- NOTE | 2025-04-18 15:34 | PN.CDI ---
CDI
- -
CDI:
Physician Documentation Request
Admit Date: 04/16/25 23:32
Dear Doctor Arabella,
The diagnosis of sepsis was documented on 04/16 in H&P but is not consistently noted in subsequent documentation.
'Sepsis (fever, tachycardia) '
04/16 wbc, 11.8 presenting heart rate 129 , respiratory rate 24
Patient has reported fever at home. Has remained afebrile while hospitalized.
Please clarify the following:
____ -Sepsis was present on admission
____ - Sepsis was ruled out
____ - Other
Use of terms such as suspected, likely, concern for, or probable (associated with a specific diagnosis that is being evaluated, monitored, or treated as if it exists) are acceptable and can be coded in the inpatient setting, when documented at the
time of discharge.
Thank you,
Rhoda Krueger RN BSN
CDI Specialist
tiger text
Please use your independent medical judgment in providing your response.
[2025-04-18 15:40] VITALS: BP 112/68
--- NOTE | 2025-04-18 16:58 | PTCARENOTE ---
Patient discharged home. Discharge VS stable. IV removed. Patient belongings in room gathered independently. Discharge instructions/medications reviewed with patient and parent. Both verbalize understanding and all questions have been answered.
Patient ambulated down to car. Transported home by parent.
[2025-04-21 13:15] LABS: Chlamydia Pneumoniae, IgG <1:64 (<1:64); Chlamydia Psittaci, IgG <1:64 (<1:64); Chlamydia Trachomatis, IgG <1:64 (<1:64)
== END 2025-04-18 17:44 | disposition home or self-care (01) | DRG 203 ==
LOC: 2 NORTH 23:32
PROVIDERS: Emergency Medicine; ADMITTING PHYSICIAN Hospitalist; ATTENDING PHYSICIAN Internal Medicine; EMERGENCY PHYSICIAN Student in an Organized Health Care Education/Training Program; FAMILY PHYSICIAN Family Medicine; OTHER PHYSICIAN Internal Medicine Infectious Disease
DX: J20.9 Acute bronchitis, unspecified (principal); D72.10 Eosinophilia, unspecified; K31.84 Gastroparesis; M41.9 Scoliosis, unspecified; F41.9 Anxiety disorder, unspecified; G90.A Postural orthostatic tachycardia syndrome [POTS]; L27.0 Generalized skin eruption due to drugs and medicaments taken internally; T36.8X5A Adverse effect of other systemic antibiotics, initial encounter; Y84.8 Other medical procedures as the cause of abnormal reaction of the patient, or of later complication, without mention of misadventure at the time of the procedure
CPT/HCPCS: 71046; 71250; 80048; 80053; 83605; 83735; 84100; 85025; 85652; 86140; 86631; 87040; 87449; 87899; 99285

== ENCOUNTER 2025-04-24 07:21 | Observation (INO) | payer BC, OTHER, SELFPAY ==
[2025-04-24] VITALS (9 sets, daily range): BP systolic 98–109; BP diastolic 58–74; BMI 21.2; BMI 20.9
--- NOTE | 2025-04-24 05:13 | ED.GENMED ---
History of Present Illness
General
Chief Complaint: Fever
Source: patient
Exam Limitations: none
Time Seen by Provider: 04/24/25 05:13
Nursing documentation reviewed up to this point in time: agreed with
History of Present Illness
History of Present Illness:
Note:
CHIEF COMPLAINT(S)
Cough and fever.
HISTORY OF PRESENT ILLNESS
The patient is a 19-year-old transgender male with past medical history of gastroparesis on TPN, chronic bronchitis, POTS, with a history of persistent cough that has lasted for 6 to 7 weeks. He presents this morning because he had a high fever
last night. Of note, he was recently admitted to the hospital with a fever of 102.9�F and was discharged a few days ago. He is diagnosed with bronchitis at the time and was noted to also have lung nodules noted on CAT scan. Upon discharge, his
fever had intermittently decreased to around 99�F. Folic he is starting to feel better but the cough persisted. However, tonight, his fever spiked to 102.6�F. He also notes ongoing shortness of breath. He denies chest pain. The patient has a
central line and consumes 1 meal daily but does vomit after this. He recently completed a course of Azithromycin two days ago. Previous hospital records include a CT scan of the chest, though follow-up chest imaging is under consideration to rule
out pneumonia and other complications. He notes nausea but denies vomiting, abdominal pain, urinary frequency, burning with urination. He denies redness or swelling at the site of central insertion. He has been using a central line for nutrition
for the past 2 years.
PAST MEDICAL AND SURGICAL HISTORY
The patients medical and surgical history was not detailed in this visit.
ADDITIONAL HISTORY OBTAINED FROM SOURCES OTHER THAN THE PATIENT
The family conveyed that the patient was advised to have appointments with a casual shoe inspector and a crew car driver, which are being missed due to the current situation and the patient is expected to return to college next week.
EXTERNAL RECORDS REVIEWED
The discussion indicated prior hospitalization with diagnostic tests, including a CT scan and laboratory work, although specific details were not disclosed.
MEDICATIONS
The patient recently completed a course of Azithromycin approximately two days ago.
PHYSICAL EXAM
General: Alert, no acute distress.
Skin: Warm, dry.
Head: Normocephalic, atraumatic.
Neck: Supple, trachea midline.
Eye Ears, nose, mouth, and throat: Oral mucosa moist.
Cardiovascular: Normal peripheral perfusion, No edema.
Respiratory: Respirations are non-labored, scattered rhonchi heard bilaterally, no wheezing, no rales.
Gastrointestinal: Abdomen nondistended, nontender to palpation.
Back: Normal range of motion, Normal alignment.
Musculoskeletal: Normal range of motion, normal strength.
Neurological: Alert and oriented to person, place, time, and situation, No focal neurological deficit observed.
Psychiatric: Cooperative, appropriate mood & affect.
PLAN
- Repeat bloodwork, repeat blood cultures, lactic acid, admit pending culture result, initiate antibiotics
- Consider repeating chest imaging to assess for potential pneumonia or other complications.
- Attempt to arrange a pulmonology consultation
- Evaluate for possible central line infection.
- Follow up on hematology consultation if required.
DIFFERENTIAL DIAGNOSIS
The Differential Diagnosis includes, in no particular order and is not limited to:
1. Pneumonia
2. Upper respiratory tract infection
3. Bronchitis
4. Influenza
5. COVID-19
6. Pulmonary embolism
7. Central line infection
8. Allergic reaction
9. Tuberculosis
10. Reactive airway disease
CHART REVIEW
Reviewed discharge summary from 04/18/2025 patient seen for fever central infection ruled out fever attributed to URI/versus acute bronchitis, patient finished azithromycin a few days ago
Reviewed infectious disease note from 04/18/2025 tests added to assess for chloamydophila species
MDM/DISPOSITION
The patient is a 19-year-old transgender male with past medical history of gastroparesis on TPN, chronic bronchitis, POTS, with a history of persistent cough that has lasted for 6 to 7 weeks. He presents this morning because he had a high fever
last night. Started to have improvement of his fevers after discharge however the cough persisted as well as the shortness of breath. Fever 102 last night prompted ER visit. Labs reviewed, leukocytosis of 16 noted, CBC differential pending. Will
add on blood work for tickborne illness. Case discussed with ED attending. Will plan on admission cannot rule out potential infection at this time. Case discussed with hospitalist.
Review of Systems
Review of Systems
All Other Systems: ROS reviewed and negative except as documented in HPI and ROS
Phy Exam
Physical Exam
Physical Exam:
see hpi
Sepsis
Sepsis Screening
Sepsis Assessment: Sepsis
Sepsis Screen
Sepsis Screen: Sepsis
Date: 04/24/25
Time: 06:27
Course
Orders/Labs/Results
Orders:
Orders
04/24/25 05:24
0.9% Sodium Chloride 1000 ml [Nss] 1,000 ml IV BOLUS
CR Chest - 2 Views Urgent
Comment:
Reason For Exam: shortness of breath
04/24/25 05:46
COVID-19 Antigen Urgent
Source: Nasal Swab
Influenza A+B Rapid Molecular Urgent
KANDY Source: Nasal Swab
Specimen Description:
04/24/25 05:53
Complete Blood Count/With Diff Urgent
Comprehensive Metabolic Panel Urgent
Ehrlichia/Anaplasma by PCR [S] Urgent
Lactic Acid Urgent
Lyme Progressive Urgent
Manual Differential Urgent
Comment: ADD ON
Navdeep Mt Spotted Fever IgG&IgM [S] Urgent
Blood Parasites Urgent
KANDY Source: Blood/Venous
Specimen Description:
04/24/25 05:54
Blood Culture Q30M
KANDY Source: Blood/Venous
Specimen Description:
04/24/25 05:59
Blood Culture Q30M
KANDY Source: Blood/Venous
Specimen Description:
Abnormal Lab Results
04/24/25
05:53
WBC 16.1 H 10^3/uL
(4.8-10.8)
RBC 4.20 L 10^6/uL
(4.70-6.10)
Hgb 12.0 L g/dL
(13.0-18.0)
Hct 35.1 L %
(39.0-52.0)
04/24/25 05:53
Vital Signs
Initial and Last Documented VS:
Initial Vital Signs
Temp Pulse Resp BP Pulse Ox
99.6 F 108 20 104/74 96
04/24/25 04:54 04/24/25 04:54 04/24/25 04:54 04/24/25 04:54 04/24/25 04:54
Last Documented Vital Signs
Temp Pulse Resp BP Pulse Ox
99.6 F 92 19 100/67 97
04/24/25 04:54 04/24/25 05:40 04/24/25 05:40 04/24/25 05:40 04/24/25 05:40
*Pulse Oximetry
SaO2: 96
Oxygen Mode of Delivery: Room air
Patient hypoxic: no
*Critical Care Note
Total Time (30-74mins, 75-104mins- exclusive of procedures): Not Applicable
ED Attending Note
-
Portions of this chart may have been created with voice recognition software.� Occasional wrong word or��sound alike� substitutions may have occurred due to the inherent limitations of voice recognition software.
Discharge Plan
Departure
Patient Disposition: Admit
Date of Disposition: 04/24/25
Time of Disposition: 06:19
Admit to: Med/Surg
Presentation/result/management discussed w/ accepting MD/DO: Hospitalist
Patient with high blood pressure during this ER visit?: No
Condition: Fair
Discharge Problem:
Fever
Prescriptions:
No Action
Activated Charcoal [Charcoal, Activated] 280 MG Capsule
280 mg PO DAILY
clarithromycin 500 MG tablet
500 mg PO BID
nystatin 500,000 UNIT tablet
1,000,000 unit PO BID
niacin 50 MG tablet
25 mg PO DAILY
carvedilol 3.125 MG tablet
3.125 mg PO BID
colesevelam [WelChol] 625 MG tablet
312.5 mg PO DAILY
cholecalciferol (vitamin D3) 2,000 UNITS tablet
2,000 units PO DAILY
testosterone cypionate 50 MG/ML oil
0.25 ml SC WEEKLY
azithromycin 250 mg tablet
250 mg PO DAILY 4 Days Qty: 4 0RF
Rx Instructions:
take for 4 days starting 04/19/2025 to complete a total 5 day course.
Referrals:
Cornelio Paez DO [Family Provider, Family Practice]
Interventions
Interventions:
*Risk Screen - Suicide Last Done: 04/24/25 04:54
*General Assessment Last Done: 04/24/25 05:41
*Neglect/Abuse Screening Last Done: 04/24/25 04:54
*ED- Fall Risk Assessment Last Done: 04/24/25 05:41
*ED COVID-19 Vaccine History Last Done: 04/24/25 05:41
ED- Neurological Assessment Last Done: 04/24/25 05:41
ED-Skin Assessment Last Done: 04/24/25 05:41
Discharge Date and Time
Print Language: SYRIAC
--- NOTE | 2025-04-24 06:11 | HPS.HSE ---
Family Physician
-
Family Physician: Cornelio Paez
Chief Complaint
-
Fever
History of Present Illness
This is a 19-year-old male (female to male transition with gender affirming surgery), who has a past medical history significant for pots disease, gastroparesis (status post gastric stimulator), scoliosis, chronic central line for TPN over the last
1.5 years, recurrent bronchitis presenting to the emergency department with a fever of 102 at home and persistent cough.
Patient was admitted about 1 week ago with cough and fever. He had extensive workup. Ultimately he was initially treated with broad-spectrum antibiotics which was narrowed to azithromycin and completed 5-day course. Was proximal. Some more usual
causes of bronchitis with negative findings for for chlamydia spp, and the usual viruses. Patient has had this nonproductive cough for over 7 weeks. He states he completed the azithromycin because. While on azithromycin he reported low-grade
temps of around 99 at home. Today's temperature went up to 102. He reported feeling chills and some fatigue. He denies any new rash. He denies any headache. He has not been having any diarrhea. He he reports chronic nausea and vomiting. He
denies any urinary symptoms. He denies any rash. Patient does have sweats with his fevers. He denies daily night sweats over the last 6 days.
In the emergency department he was afebrile with a temp of 99.1, blood pressure was 100/67 and he was satting 97% on room air. Chest x-ray is clear. COVID and flu were negative. His white count is up to 16.1 which is higher than previous. Rest
of the CBC is unremarkable. Electrolytes BUN/creatinine were normal. Normal LFTs.
Medical History
Past Medical History
Past Medical History: Reports Other (gender affirming surgery, pots disease, gastroparesis status post gastric stimulator on TPN through central line placed 18 months ago, prior PICC lines, history of bronchitis 5 years ago, scoliosis)
Past Surgical History: Reports Other (Cholecystectomy, gastric stimulator, TPN Central line, prior PICC lines,)
Social History
Tobacco: Non-smoker
Alcohol: None
Drug: None
Family History
Family History: Not pertinent
Allergies / Home Medications
Allergies reflects when Allergies were last updated in [facility].
Home Medications with original date entered in [facility]
Allergy/Medication List:
Allergies
Allergy/AdvReac Type Severity Reaction Status Date / Time
chlorhexidine Allergy Rash Verified 04/16/25 19:57
Home Medications
Activated Charcoal [Charcoal, Activated] 280 mg PO DAILY 02/04/22
carvedilol 3.125 mg tablet 3.125 mg PO BID 02/04/22
cholecalciferol (vitamin D3) 50 mcg (2,000 unit) tablet 2,000 units PO DAILY 02/04/22
clarithromycin 500 mg tablet 500 mg PO BID 02/04/22
colesevelam 625 mg tablet (WelChol) 312.5 mg PO DAILY 02/04/22
niacin 50 mg tablet 25 mg PO DAILY 02/04/22
nystatin 500,000 unit tablet 1,000,000 unit PO BID 02/04/22
testosterone cypionate 50 mg/mL intramuscular oil 0.25 ml SC WEEKLY 02/04/22
Review of Systems
-
History Source: Patient
A 12 point ROS was completed and negative except as noted: Yes
Constitutional: Reports No Symptoms
EENT: Reports No Symptoms
Respiratory: Reports See HPI
Cardiac: Reports No Symptoms
Abdomen/GI: Reports No Symptoms
: Reports No Symptoms
Musculoskeletal: Reports No Symptoms
Skin: Reports No Symptoms
Neurological: Reports No Symptoms
Endocrine: Reports No Symptoms
Hematologic/Lymphatic: Reports No Symptoms
Psych: Reports No Symptoms
Physical Exam
Vital Signs
Vital Signs
Temp Pulse Resp BP Pulse Ox
99.6 F 92 19 100/67 97
04/24/25 04:54 04/24/25 05:40 04/24/25 05:40 04/24/25 05:40 04/24/25 05:40
Physical Exam
General: Well Developed, Well Nourished and No Apparent Distress
HEENT: NormoCephalic, Moist mucous membranes and Atraumatic
Respiratory: Clear
Cardiac: S1/S2 and Regular Rhythm; No Murmur or Rub
GI: Soft, Non Tender, Non Distended and Normal Bowel Sounds; No Organomegaly
Rectal: Deferred by Provider
Musculoskeletal: No Clubbing, No Cyanosis and No Edema
Skin: No Rash
Neuro: Nonfocal/grossly intact
Data Reviewed
-
Diagnostic Radiology: Image Personally Visualized and interpreted
Lab Data: Labs Reviewed by me
Old Records: Reviewed
Impression/Plan
-
IMPRESSION:
19 y.o male with h/o pots, gastroparesis, gender affirming surgery who has been dependent on TPN via PICC line for the past one year and who has a recent admission for fever in setting of a persistent non-productive cough coming for a fever. He had
negative blood cultures, negative infectious w/u with elevated inflammatory markers (ESR/CRP). He was tx with azithromycin x 5 days and now returns with fever to 102, ongoing non-productive cough and leukocytosis. His exam is benign. He is
non-toxic appearing and has no rash. CT did show multiple bilateral pulmonary nodules predominantly peripherally. The etiology is uncertain and this could be infectious.
PLAN:
Recurrent/persistent fever - Source unclear. Benign examination. Clear Xray. Chronic dry cough. No urinary or GI symptoms
- admit to med/surg observation
- blood cx sent
- viral panel negative
- tick borne panel sent
- wbc 16 and previously elevated ESR raise concern for endocarditis but cx have been negative. Could consider TTE/ANN if no source found and fever persisent
- would hold off further abx for now
- ID consultation
Cough - 7 wks of non-productive cough. CT with pulmonary nodules possible infectious. No hypoxia, sob, hemoptysis. Negative Chlamydia spp. No wheezing. No tobacco use, vaping, inhalants and no prior hx of asthma.
- s/p azithromycin x 5 days with persistence of cough
- + inflammatory markers, w/ high eos consider eosinophilic granulomatosis
- pulmonary consultation
Gastroparesis
- diet as tolerated (small portions),
- continue welchol
- continue calrithromycin
- restart tnp if bacteremia cleared
POTS
- carvedilol
DVT PPX - SCDs
Code status - Full Code
[2025-04-24] MEDS: NSS 1000 IV (06:15)
[2025-04-24 06:18] LABS: Hematocrit 35.1 % (39.0-52.0); Hemoglobin 12.0 g/dL (13.0-18.0); Mean Corp Hgb Conc. 34.2 g/dL (33.0-37.0); Mean Corpuscular Volume 83.6 fL (80.0-94.0); Platelet Count 248 10^3/uL (130-400); Red Cell Dist. Width 12.3 % (11.5-14.5)
[2025-04-24 06:30] LABS: COVID-19 Antigen Negative (Negative)
[2025-04-24 06:37] LABS: ALT (SGPT) 21 U/L (0-50); AST (SGOT) 25 U/L (17-59); Albumin 3.9 g/dl (3.5-5.0); Alkaline Phosphatase 103 U/L (38-126); Blood Urea Nitrogen 13 mg/dl (9-20); Calcium 9.0 mg/dl (8.4-10.2); Carbon Dioxide 28 mmol/L (22-30); Chloride 106 mmol/L (98-107); Estimated Creatinine Clearance > 125 ml/min; Glucose 101 mg/dl (70-99); Potassium 4.4 mmol/L (3.5-5.1); Sodium 140 mmol/L (135-145); Total Protein 7.2 g/dl (6.3-8.2); eGFR > 60.00
[2025-04-24 06:43] LABS: Absolute Neutrophils -Man Diff 9.9 10^3/uL (1.4-6.5); Normal RBC Morphology Yes; Platelets Checked Yes
[2025-04-24 06:44] LABS: Total Cells Counted 100
--- NOTE | 2025-04-24 08:18 | CON.ID ---
Consultation
-
Date/Time Consultation Requested: 04/24/2025714
Date/Time Consultation Performed: 04/24/202515
Requesting Provider: Dr. Bowling
Performing Provider: Dr. Mace
Reason for Consultation: Fever
Chief Complaint / Past History
History of Present Illness
Caesar Cano is a 19-year-old trans male with a history of gastroparesis, on nightly TPN being evaluated at the request of Dr. Bowling regarding fever. History is obtained from chart review, along with patient interview.
Patient is known to the Infectious Disease service, having been seen on 04/17 during his prior admission. At that time the patient had been in his usual state of health until 4 to 5 weeks prior when he developed a cough. 1 week into his
symptomatology he contacted his PCP and was given an albuterol inhaler. After several more weeks (?2-3 weeks) he was seen at an urgent care where a diagnosis of bronchitis was made. The patient was placed on an oral steroid taper over the
following 10 days. At the time of his last admission he developed fever over the prior 3-4 nights, with the highest temperature being recorded as 102.9 degrees. He still had a cough but it was nonproductive. He denies any chest pain or
hemoptysis. He noted no sick contacts. During his stay, he continued to have a nonproductive cough, but there were no further fevers. He ultimately was discharged on 04/18, to complete a course of Azithromycin for 4 additional days.
The patient presents back to the ER early this morning, again for reported fever to 102.6 degrees. The patient also reported some shortness of breath but no chest pain.
In additional history, he is a studying [employer]. At home, he has 1 dog and 2 birds (a cockatiel and another type of bird) he has had the birds for approximately 6 years and they are noted to be healthy. He denies any travel other
than that to [place] in September.
Past History
Additional Past Medical History:
POTS
Gastroparesis; on nightly TPN
Scoliosis
Additional Past Surgical History:
Gender surgery
Gastric stimulator
Cholecystectomy
Allergy History:
chlorhexidine Allergy (Verified 04/24/25 04:56)
Rash
vancomycin Allergy (Verified 04/24/25 04:56)
Rash
Medications Reviewed: Yes
Current Antibiotics:
None
Social History
Tobacco: Non-Smoker
Alcohol: None
Drug: None
Personal: Single
Living: With Family
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
Family History
Family History: Not Pertinent
Review of Systems
Vital Signs
Temp Pulse Resp BP Pulse Ox
99.3 F 91 0 102/67 96
04/24/25 06:51 04/24/25 08:15 04/24/25 08:15 04/24/25 07:13 04/24/25 08:15
Physical Exam
Physical Exam
Constitutional: No Acute Distress, Comfortable and Non-toxic
Eyes: No Conjunctival Hemorrhage and Sclera Anicteric
Oral: No Thrush and No Ulcers
Cardiovascular: Regular Rate and S1/S2; Negative S3/S4
Pulmonary: Clear; Negative Wheezes, Rales or Rhonchi
Gastrointestinal: Soft, Non Tender, Non Distended and Normal Bowel Sounds
Extremities: Negative Edema, Cyanosis or Erythema
Skin: Warm and Dry; Negative Rash or Jaundice
Neurological: Awake and Alert
Lines: Other (Right ACW tunneled PICC (placed 06/11/2024 per records))
Lab / Diagnostic Study Results
04/24/25 05:53
04/24/25 05:53
Total Counted 100 04/24/25 05:53
Abs Neuts (Manual) 9.9 10^3/uL (1.4-6.5) H 04/24/25 05:53
Segmented Neutrophils 62 % (42-75) 04/24/25 05:53
Band Neutrophils 0 % (0-3) 04/24/25 05:53
Lymphocytes (Manual) 15 % (20-51) L 04/24/25 05:53
Eosinophils (Manual) 21 % (0-6) H 04/24/25 05:53
Lactic Acid 0.7 mmol/L (0.7-2.0) 04/24/25 05:53
Laboratory Tests
04/16/25 04/17/25 04/18/25
20:09 06:21 05:54
Absolute Eos (auto) 3.8 H 3.4 H 3.5 H
Microbiology Results
Micro:
04/24/25 06:45 Influenza Types A & B (LI) - Final
Nasal Swab Negative for Influenza A & B, NAAT
Negative results must be combined with clinical observations
and patient history.
Nucleic Acid Amplification test (NAAT)performed on the
[employer] platform.
04/24/25 05:53 Blood Parasites Smear - Pending
Blood/Venous
04/24/25 05:54 Blood Culture - Pending
Blood/Venous
04/24/25 05:59 Blood Culture - Pending
Blood/Venous
Imaging:
04/24/2025 CXR (2 view): lungs are clear. No pleural effusion or pneumothorax.
04/16/2025 CT chest without contrast: small pulmonary nodules seen bilaterally and diffusely more pronounced peripherally. No focal consolidation or pleural effusion. No enlarged hilar or mediastinal adenopathy. Right sided central line with its
tip in the SVC is noted.
Assessment / Plan
Fever
Leukocytosis
Cough (persistent)
Eosinophilia
POTS
Gastroparesis; on nightly TPN
Scoliosis
Recommendations:
At present, no clear etiology for fever and leukocytosis. Certainly with chronic TPN, concern for line infection remains present. Patient has not received any antibiotics. Blood cultures while off of antibiotics have been obtained (peripheral).
Will check blood culture from line.
Check stool for ova and parasites.
Check strongyloidiasis serology
Await Pulmonary evaluation regarding chronic cough.
May consider HemeOnc evaluation of eosinophilia
--- NOTE | 2025-04-24 08:20 | CON.PUL ---
Consultation
Consultation Request
Date/Time Consultation Requested: 04/24/2025-9 AM
Date/Time Consultation Performed: 04/24/2025-9:30 AM
Requesting Provider: hospitalist
Performing Provider: Dr. Garcia
Reason for Consultation: Chronic cough/eosinophilia/pulmonary nodules
Medical History
-
Chief Complaint: Shortness of breath and cough
History of Present Illness:
19-year-old non-smoking female to male transition with gender affirming surgery patient with a history of POTS, gastroparesis status post gastric stimulator, scoliosis, recurrent bronchitis presents with a 6-week history of fevers, persistent
nonproductive cough, mild shortness of breath unresponsive to short course of steroids, antibiotics and albuterol-pulmonary consulted for shortness of breath/cough/abnormal CT chest 04/24/2025. The patient has a history of traveling to [facility]
about 7 years ago without sick contact. About 6 years ago patient had bronchitis with a lengthy illness there after include blood pressure issues, POTS, and instead intermittent bronchitis since that time. He states that he was placed on brief
course of steroids his cough did not improve recently. He has had some fever, productive cough, with wheezing, chest pain, pleurisy, hemoptysis, abdominal pain, nausea, focal weakness or leg swelling.
Past Medical History
Past Medical History: None (Female to male transition with gender affirming surgery. POTS. Gastroparesis status post gastric stimulator. Scoliosis. Central line for tPA over the last 1.5 years. Recurrent bronchitis. Cholecystectomy. Gastric
stimulator.)
Social History
Tobacco: Non-smoker
Alcohol: None
Drug: None
Personal: Single
Living: With Family
Occupational Exposures: no known tuberculosis exposure or asbestos exposure
Environmental Exposures: Travel to [facility] 7 years ago
Family History
Family History: Reviewed & Not Pertinent (Specifically no family history of pulmonary disease)
Allergies / Home Medications
Allergies
Allergy/AdvReac Type Severity Reaction Status Date / Time
chlorhexidine Allergy Rash Verified 04/24/25 04:56
vancomycin Allergy Rash Verified 04/24/25 04:56
Home Medications
�Medication �Instructions �Recorded �Confirmed �Last Taken �Type
ascorbic acid (vitamin C) 500 mg 500 mg PO DAILY 04/24/25 04/24/25 Unknown History
tablet (Vitamin C)
cromolyn 100 mg/5 mL oral 200 mg PO AC 04/24/25 04/24/25 Unknown History
concentrate
ferrous sulfate 325 mg (65 mg 325 mg PO DAILY 04/24/25 04/24/25 Unknown History
iron) tablet
testosterone cypionate 200 mg/mL 50 mg IM WE 04/24/25 04/24/25 Unknown History
intramuscular kit
Review of Systems
-
Unable to Obtain full review of systems at this time due to: Other ( per HPI)
Vitals / Labs / Diagnostic Testing
Vital Signs
Temp Pulse Resp BP Pulse Ox
99.3 F 91 0 102/67 96
04/24/25 06:51 04/24/25 08:15 04/24/25 08:15 04/24/25 07:13 04/24/25 08:15
Lab Data
04/24/25 05:53
04/24/25 05:53
Microbiology
04/24/25 06:45 Nasal Swab Influenza Types A & B (LI) - Final
Negative for Influenza A & B, NAAT
Negative results must be combined with clinical observations
and patient history.
Nucleic Acid Amplification test (NAAT)performed on the
[employer] platform.
Diagnostic Testing:
Physical Exam
-
Exam:
Well-nourished and well-developed in no apparent distress
HEENT-atraumatic, normocephalic
Neck-supple, no JVD, no bruit
Heart-regular rate and rhythm-no murmurs, rubs or gallops
Chest essentially clear with rare rhonchi, no wheezes and no crackles
Back without tenderness
Abdomen-soft, nontender, nondistended, no hepatosplenomegaly
Extremities-no cyanosis, clubbing, edema and good peripheral pulses
Integument-intact, no rashes, lesions or ecchymosis
Neurology-alert and oriented, nonfocal motor and sensory exam
Assessment
-
19-year-old non-smoking female to male transition with gender affirming surgery patient with a history of POTS, gastroparesis status post gastric stimulator, scoliosis, recurrent bronchitis presents with a 6-week history of fevers, persistent
nonproductive cough, mild shortness of breath unresponsive to short course of steroids, antibiotics and albuterol-pulmonary consulted for shortness of breath/cough/abnormal CT chest 04/24/2025.
Persistent fever/nonproductive cough with eosinophilia and diffuse pulmonary nodules
Eosinophilia-3500 eosinophils
Numerous pulmonary nodules
Chronic cough
Leukocytosis
Travel [place], [place] 7 years ago
Patient routinely exposed to 1 dog and 2 birds-one of them a cockatiel-for the past 6 years and noted to be healthy
Conditions present prior to admission:
Recent admission 04/17/2025
Female to male transition with gender affirming surgery.
POTS.
Gastroparesis status post gastric stimulator.
Scoliosis.
Central line for tPA over the last 1.5 years.
Recurrent bronchitis.
Cholecystectomy. Gastric stimulator.
Plan
Patient's fevers and nonproductive cough likely related to his eosinophilia/multiple pulmonary nodules-differential includes unlikely neoplasia, allergies, Kemal's, eosinophilic pneumonitis, collagen vascular including EGPA-eosinophilic
granulomatosis with polyangiitis-formerly known as Churg-Ciaran, granulomatosis with polyangiitis-formally called Cyrus's granulomatosis, microscopic polyangiitis, and parasitic and less likely fungal diseases
Supplemental oxygen if needed
Nebulizers if needed-currently not bronchospastic
Antitussives as needed
Speech therapy evaluation
Infectious disease evaluation
Blood cultures
Stool for ova and parasites
Strongyloides serology
Rickettsial antibodies well
Echocardiogram-low clinical suspicion for endocarditis
Arranging for bronchoscopy with bronchoalveolar lavage and transbronchial biopsies-hopefully 04/25/2025
Check ANCA, IgE
Check spirometry
Avoid steroids until after bronchoscopy-then consider if noninfectious and appears to be potentially steroid responsive process
Dr. Garcia reviewed extensively with mother in the emergency room
Dr. Garcia reviewed with Dr. Ha who will be performing bronchoscopy/BAL/transbronchial biopsies
Patient has appointment to see Dr. Hoff around [facility]-will make follow-up appointment sooner-patient going off to school in [place]
Diagnostic data:
Chest x-ray 05/11/2024-left PICC line, no parenchymal opacification
Chest x-ray 04/16/2025-NAD
Chest x-ray 04/24/2025-NAD
CT 04/16/2025-small pulmonary nodules seen bilaterally and diffusely more pronounced peripherally
Data Reviewed
-
EKG: Report reviewed by me
Radiology: Image personally visualized and interpreted and Report reviewed by me
CT Scan: Image personally visualized and interpreted and Report reviewed by me
Medical Tests (Nuc Med, Echo etc): Report reviewed by me
Labs: Labs reviewed by me
Old Records: Reviewed
Total Time Spent with Patient (in minutes): 75
[2025-04-24] MEDS: D5LR 1000 IV ×2 (09:42→22:32)
--- NOTE | 2025-04-24 09:55 | W.PN.HOSP.TC ---
Today's Communication/Plan
-
See plan
Assessment / Plan
Assessment / Plan
Impression
19 y.o male with h/o pots, gastroparesis, gender affirming surgery who has been dependent on TPN via PICC line for the past one year and who has a recent admission for fever in setting of a persistent non-productive cough coming for a fever. He had
negative blood cultures, negative infectious w/u with elevated inflammatory markers (ESR/CRP). He was tx with azithromycin x 5 days and now returns with fever to 102, ongoing non-productive cough and leukocytosis. His exam is benign. He is
non-toxic appearing and has no rash. CT did show multiple bilateral pulmonary nodules predominantly peripherally. The etiology is uncertain and this could be infectious.
Recurrent fever.
Night sweats.
Nonproductive cough
Leukocytosis with eosinophilia.
Recent hospitalization and treatment for ICU and community-acquired pneumonia
Gastroparesis
Right chest central line
Nightly TPN infusion
POTS
Plan:
Reported fevers as outpatient, leukocytosis with eosinophilia nonproductive cough mostly when lying down and at night.
Recently hospitalized and treated for community-acquired bronchitis/pneumonia
Chest CT with multiple bilateral pulmonary nodules predominantly peripherally.
Differential diagnosis besides the community acquired pneumonia,? Bronchiectasis, chronic aspiration (risk with gastroparesis), CHERYLE/NTM, line infection.
Viral panel negative recently.
Chlamydia serology negative.
Blood cultures negative.
Repeat blood culture from the port
Tickborne pathogen serology pending
Speech and swallow including VSE
Echocardiogram
ID/pulmonology evaluation
Monitor temperature curve off antibiotics
Anticipated Discharge: 24 - 48 hours
Subjective/Interval History
-
Date of Service: April 24, 2025
Objective Data
-
Labs:
Laboratory Results
04/24/25
05:53
WBC 16.1 H
Hgb 12.0 L
Hct 35.1 L
Plt Count 248
Sodium 140
Potassium 4.4
Chloride 106
Carbon Dioxide 28
BUN 13
Creatinine 0.7
Glucose 101 H
Calcium 9.0
Total Bilirubin 0.5
AST 25
ALT 21
Alkaline Phosphatase 103
Vital Signs:
Vital Signs
Temp Pulse Resp BP Pulse Ox
98.2 F 90 23 104/62 97
04/24/25 09:17 04/24/25 09:00 04/24/25 09:00 04/24/25 09:12 04/24/25 09:12
Physical Exam
-
General: Well Developed and No Apparent Distress
HEENT: Normocephalic, Atraumatic and Moist Mucous Membranes
Respiratory: Clear to Auscultation
Cardiac: Regular Rhythm and S1/S2; Negative Murmur, Rub or Gallop
GI: Soft, Nontender, Nondistended and Normal Bowel Sounds; Negative Organomegaly
Rectal: Deferred by Provider
Musculoskeletal: No Clubbing, No Cyanosis and No Edema
Skin: Negative Rash
Neuro: Nonfocal/Grossly Intact
--- NOTE | 2025-04-24 11:06 | PTOTSP ---
Dysphagia Evaluation
Suspect functional oral/pharyngeal swallowing based on presentation during clinical bedside swallow, patient report, and medical history. Patient at an elevated risk for bottom up aspiration with history of gastroparesis and reports of vomiting 80%
of PO intake after meals.
Recommend:
1. Regular, Thin Liquids
2. Upright posture for PO intake, slow rate of intake, remain upright for at least 30 minutes after PO intake
3. Gastroenterology consult to further assess concerns for bottom up aspiration risks. Further modifications to diet/ swallowing precautions at discretion of GI.
No further dysphagia therapy warranted. Video swallow study is not warranted at this time. Please reconsult as appropriate.
[2025-04-24] MEDS: TYLENOL 650 MG PO ×2 (11:51→20:06)
[2025-04-24 12:26] LABS: INR 1.14; PT 15.2 Sec (11.4-14.6)
[2025-04-24 12:54] LABS: Lyme Antibody Screen, EIA Negative (Negative)
--- NOTE | 2025-04-24 16:20 | PTCARENOTE ---
Patient admitted to 4W from ED, ambulated from stretcher to bed. AAOx3 with no acute complaints at this time. Oriented patient and father at bedside to room and plan of care. Call segundo within reach.
Unable to complete CHG bath due to patient's chlorhexidine allergy.
[2025-04-24] MEDS: MELATONIN 5 MG PO (21:01)
[2025-04-25] VITALS (8 sets, daily range): BP systolic 90–120; BP diastolic 52–74
[2025-04-25 06:21] LABS: Hematocrit 35.1 % (39.0-52.0); Hemoglobin 11.9 g/dL (13.0-18.0); Mean Corp Hgb Conc. 33.9 g/dL (33.0-37.0); Mean Corpuscular Volume 84.4 fL (80.0-94.0); Platelet Count 214 10^3/uL (130-400); Red Cell Dist. Width 12.3 % (11.5-14.5)
[2025-04-25 06:42] LABS: Blood Urea Nitrogen 8 mg/dl (9-20); Calcium 8.8 mg/dl (8.4-10.2); Carbon Dioxide 31 mmol/L (22-30); Chloride 105 mmol/L (98-107); Estimated Creatinine Clearance 115 ml/min; Glucose 103 mg/dl (70-99); Potassium 4.3 mmol/L (3.5-5.1); Sodium 140 mmol/L (135-145); eGFR > 60.00
--- NOTE | 2025-04-25 09:26 | W.PN.UPDATE ---
Update Note
Progress Note Update
Bronchoscopy note
Indications: Bilateral interstitial disease, nodular infiltrate
Informed consent: Obtained from patient
Findings: See bronchoscopy report for complete details. There were no secretions. Airway anatomy normal. There is mild diffuse vascularity throughout the tracheobronchial tree, no endobronchial lesions. Right middle lobe BAL completed, sent for
cytology, AFB, fungal, bacterial culture, viral culture, PJP, parasites, cell count with differential. Right middle lobe brushing sent for cytology and AFB/fungal/bacterial culture. Right middle lobe and right lower lobe transbronchial biopsies
obtained sent for histopathology
Patient tolerated procedure well
Postoperative chest x-ray without evidence of pneumothorax per my review
Follow-up on studies above
Patient should follow-up with pulmonary within 1 month as an outpatient
--- NOTE | 2025-04-25 09:36 | W.PN.HOSP.TC ---
Today's Communication/Plan
-
see A/P
Assessment / Plan
Assessment / Plan
19 yo male with h/o pots, gastroparesis, gender affirming surgery who has been dependent on TPN via PICC line for the past one year, recent admission for fever in setting of persistent non-productive cough; p/w fever. He had negative blood cultures,
negative infectious w/u with elevated inflammatory markers (ESR/CRP). He is s/p azithromycin x 5 days and now returns with fever to 102, ongoing non-productive cough and leukocytosis. His exam is benign. He is non-toxic appearing and has no rash.
CT did show multiple bilateral pulmonary nodules predominantly peripherally. The etiology is uncertain and this could be infectious.
Impression
Recurrent fever.
Night sweats.
Nonproductive cough
Leukocytosis with eosinophilia.
SIRS
Recent hospitalization and treatment for ICU and community-acquired pneumonia
Gastroparesis
Right chest central line
Nightly TPN infusion
POTS
Plan:
Reported fevers as outpatient, leukocytosis with eosinophilia
Chronic nonproductive cough mostly when lying down and at night.
Recently hospitalized and treated for ?community-acquired bronchitis/pneumonia
Chest CT with multiple bilateral pulmonary nodules predominantly peripherally.
Differential diagnosis besides the community acquired pneumonia, ?Bronchiectasis, chronic aspiration (risk with gastroparesis), CHERLYE/NTM, line infection.
Viral panel negative recently.
Chlamydia serology negative.
Blood cultures negative currently.
Check repeat blood culture from the port
Tickborne pathogen serology pending
Check stool for ova and parasites.
Check strongyloidiasis serology
s/p bronch 04/24: No secretions. Airway anatomy normal. Right middle lobe BAL completed, sent for cytology, AFB, fungal, bacterial culture, viral culture, PJP, parasites, cell count with differential. Right middle lobe brushing sent for cytology and
AFB/fungal/bacterial culture. Right middle lobe and right lower lobe transbronchial biopsies obtained sent for histopathology
SPL cleared for Regular, Thin Liquids, ordered. Pt states that he cannot generally tolerate solid and would throw up.
Echo largely unrevealing: EF 54 %
Check CT AP with and without contrast for fever work up, recent gender affirming surgery per pt
ID/pulmonology on board
Monitor temperature curve off antibiotics
DW mother at bedside
DW Pulm
DW ID
total time spent 51 min
Anticipated Discharge: > 48 hours
Subjective/Interval History
-
Date of Service: April 25, 2025
Objective Data
-
Labs:
Laboratory Results
04/25/25
05:51
WBC 12.8 H
Hgb 11.9 L
Hct 35.1 L
Plt Count 214
Sodium 140
Potassium 4.3
Chloride 105
Carbon Dioxide 31 H
BUN 8 L
Creatinine 0.8
Glucose 103 H
Calcium 8.8
Vital Signs:
Vital Signs
Temp Pulse Resp BP Pulse Ox
36.7 C 117 24 117/52 98
04/25/25 09:04 04/25/25 09:15 04/25/25 09:15 04/25/25 09:15 04/25/25 09:15
I&O
04/24/25 04/25/25 04/26/25
06:59 06:59 06:59
Intake Total 900 / 900
Balance 900 / 900
Review of Systems
-
History Source: Patient
Constitutional: Reports Fever (recurrent)
Physical Exam
-
General: Well Developed, Well Nourished, No Apparent Distress, Comfortable and Conversant
HEENT: Normocephalic, Atraumatic and Moist Mucous Membranes
Respiratory: Clear to Auscultation and Non Labored Respirations; Negative Accessory Resp Muscle Use
Cardiac: Regular Rhythm and S1/S2; Negative Murmur, Rub or Gallop
GI: Soft, Nontender, Nondistended and Normal Bowel Sounds; Negative Organomegaly
Rectal: Deferred by Provider
Musculoskeletal: No Clubbing, No Cyanosis and No Edema
Skin: Warm and Dry; Negative Rash
Neuro: Awake and Alert
Psych: Calm and Intact Judgement/Insight
Data Reviewed
-
Labs: Labs Reviewed by me
[2025-04-25] MEDS: OMNIPAQUE 50 ML PO (10:34)
--- NOTE | 2025-04-25 10:35 | W.PN.PUL.V3 ---
Today's Communication / Plan
-
.
Tolerated bronchoscopy-results pending-significant eosinophils.
Serology-pending.
If no infectious etiology and consider a trial of steroids-outpatient pulmonary follow-up
Assessment
-
19-year-old non-smoking female to male transition with gender affirming surgery patient with a history of POTS, gastroparesis status post gastric stimulator, scoliosis, recurrent bronchitis presents with a 6-week history of fevers, persistent
nonproductive cough, mild shortness of breath unresponsive to short course of steroids, antibiotics and albuterol-pulmonary consulted for shortness of breath/cough/abnormal CT chest 04/24/2025.
Persistent fever/nonproductive cough with eosinophilia and diffuse pulmonary nodules
Eosinophilia-3500 eosinophils
Numerous pulmonary nodules
Chronic cough
Leukocytosis
Travel [place] 20[place], [place] 7 years ago
Patient routinely exposed to 1 dog and 2 birds-one of them a cockatiel-for the past 6 years and noted to be healthy
Conditions present prior to admission:
Recent admission 04/17/2025
Female to male transition with gender affirming surgery.
POTS.
Gastroparesis status post gastric stimulator.
Scoliosis.
Central line for tPA over the last 1.5 years.
Recurrent bronchitis.
Cholecystectomy. Gastric stimulator.
Plan
Patient's fevers and nonproductive cough likely related to his eosinophilia/multiple pulmonary nodules-differential includes unlikely neoplasia, allergies, Kemal's, eosinophilic pneumonitis, collagen vascular including EGPA-eosinophilic
granulomatosis with polyangiitis-formerly known as Churg-Ciaran, granulomatosis with polyangiitis-formally called Cyrus's granulomatosis, microscopic polyangiitis, and parasitic and less likely fungal diseases
Supplemental oxygen if needed-currently on room air
Nebulizers if needed-currently not bronchospastic
Antitussives as needed
Speech therapy evaluation noted-regular and thin liquids
Infectious disease evaluation ongoing-reviewed with Dr. Kimzey
Blood cultures negative
Stool for ova and parasites-pending
Strongyloides serology-Pending
Lyme screen-negative
Rickettsial antibodies -pending.
Blood cultures negative.
Blood-parasite smear-no parasites seen.
Echocardiogram 04/24/25-EF 54%, no significant valvular disease, PA systolic 23
Bronchoscopy 04/25/25-BAL and transbronchial biopsy-hazy fluid, WBC elevated 679,250, 55% eosinophils, 38% macrophages..
Bronchoscopy 04/25/25-RSV cultures-pending, AFB smear and cultures-pending, fungal smears and cultures pending
Bronchoscopy 04/25/25- BAL-cytology pending.
Bronchoscopy 04/25/25-transbronchial biopsy-pending
IgE-pending.
Proteinase 3 antibody-pending.
Myeloperoxidase antibody-pending
Bedside spirometry 04/24/25-FEV1 2.71 L-81%, FVC 3.6-94%-mild obstruction
Avoid steroids until after bronchoscopy-then consider if noninfectious and appears to be potentially steroid responsive process
Immunoglobulin levels--IgA, IgG and IgM-normal.
CT abdomen and pelvis-pending.
Ultimately, if no obvious infections are found, then a course of steroids may be in order-the patient reports being briefly on steroids not high-dose without significant benefit
Dr. Garcia reviewed extensively with mother in the emergency room And again extensively for over 20 minutes on 04/25/25
Patient has appointment to see Dr. Hoff around [facility]-will make follow-up appointment sooner-patient going off to school in [place]-will ask patient to make appointment in 1-2 weeks after discharge
Diagnostic data:
Chest x-ray 05/11/2024-left PICC line, no parenchymal opacification
Chest x-ray 04/16/2025-NAD
Chest x-ray 04/24/2025-NAD
CT 04/16/2025-small pulmonary nodules seen bilaterally and diffusely more pronounced peripherally
Subjective Data
-
Date of Service:
Date of Service: April 25, 2025
Chief Complaint: Pulmonary Follow Up and Dyspnea Follow Up
Subjective:
Feels about the same, mostly nonproductive cough, minimal wheezing, no chest pain or abdominal pain
Review of Systems
General: Other ( per HPI)
Objective Data
Data Reviewed
Vital Signs / I&O:
Vital Signs
Temp Pulse Resp BP Pulse Ox
97.6 F 102 23 90/66 90
04/25/25 09:46 04/25/25 09:46 04/25/25 09:46 04/25/25 09:46 04/25/25 09:46
Intake and Output
04/24/25 04/25/25 04/26/25
06:59 06:59 06:59
Intake Total 900 / 900 100 / 100
Balance 900 / 900 100 / 100
SaO2: 90
Physical Exam
General: Respiratory Distress (n) and Comfortable
HEENT: Normocephalic, Anicteric and Moist Mucous Membranes
Cardiovascular: Regular Rhythm and Murmur (n)
Respiratory: Wheeze ( forced end expiratory), Crackles (n), Rhonchi ( few expiratory), Non-Labored Respirations, Accessory Resp Muscle Use (n) and Stridor (n)
GI: Soft, Non Distended and Non Tender
Neurology: Awake, Alert and No Motor Deficits
Skin: Warm, Good Color, Cyanosis (n), Jaundice (n) and Rash (n)
Labs/Micro/Reports
Lab Data
04/25/25 05:51
04/25/25 05:51
Laboratory Results
04/24/25
12:01
PT 15.2 H
INR 1.14
Microbiology
04/25/25 09:23 Bronch Right Middle Lobe Fungal Culture - Preliminary
Culture in progress.
Positive cultures are reported as soon as detected.
Final report to follow in four to five weeks.
04/24/25 09:37 Blood/Venous Blood Culture - Preliminary
No Growth in 24 hours- Final report to follow
04/24/25 05:59 Blood/Venous Blood Culture - Preliminary
No Growth in 24 hours- Final report to follow
04/24/25 05:54 Blood/Venous Blood Culture - Preliminary
No Growth in 24 hours- Final report to follow
04/24/25 05:53 Blood/Venous Blood Parasites Smear - Final
04/24/25 06:45 Nasal Swab Influenza Types A & B (LI) - Final
Negative for Influenza A & B, NAAT
Negative results must be combined with clinical observations
and patient history.
Nucleic Acid Amplification test (NAAT)performed on the
[employer] platform.
[2025-04-25 11:11] LABS: Brochalveolar Lavage Color Colorless; Brochalveolar Lavage Volume 16 ml
[2025-04-25 11:12] LABS: Brochalveolar Lavage Character Hazy (Clear); Brochalveolar Lavage WBC 679250 cells/ml
--- NOTE | 2025-04-25 11:14 | CM ---
CM reviewed chart, patient seen bedside with mother, initial assessment completed. Patient resides with his family, plan to return to college in two days. Patient is independent with ADLs/IADLs, received weekly infusion from [facility]. PCP Cornelio
Philippe, pharmacy [facility], confirms prescription coverage. OBS form verbally reviewed, provided with copy, placed in chart. CM will continue to follow for all discharge planning needs
Plan; Home with [facility] to resume home TPN
[facility]
[2025-04-25] MEDS: D5LR 1000 IV (14:05)
--- NOTE | 2025-04-25 15:00 | W.PN.ID1 ---
Date of Service
Date of Service: April 25, 2025
Today's Communication
Observe off antibiotics for now.
Assessment / Plan
Fever
Leukocytosis
Cough (persistent)
Eosinophilia
POTS
Gastroparesis; on nightly TPN
Scoliosis
Recommendations:
At present, no clear etiology for fever and leukocytosis. Certainly with chronic TPN, concern for line infection remains present. Patient has not received any antibiotics. Blood cultures while off of antibiotics have been obtained (both
peripheral and 1 from PICC line).
Stool for ova and parasites ordered
Strongyloidiasis serology pending
Patient is status post bronchoscopy.
Monitor white count and temperature curve. Should fevers recur, would persue PICC line removal with tip culture.
Chief Complaint
-: Fever
Subjective / Review of Systems
Patient seen and examined. Overall feels well. Low-grade temperatures noted last evening, but have not returned.
Vital Signs / Physical Exam
Vital Signs
Vital Signs
Temp Pulse Resp BP Pulse Ox
97.6 F 102 23 90/66 90
04/25/25 09:46 04/25/25 09:46 04/25/25 09:46 04/25/25 09:46 04/25/25 10:35
Physical Exam
Constitutional: No Acute Distress, Comfortable and Non-toxic
Eyes: No Conjunctival Hemorrhage
Cardiovascular: S1/S2; Negative S3/S4
Pulmonary: Clear and Non Labored
Gastrointestinal: Soft, Non Tender and Non Distended
Extremities: Negative Edema, Cyanosis or Erythema
Neurological: Awake and Alert
Psychological: Calm
Lines: PICC (tunneled right ACW PIC; no erythema or tenderness)
Objective Data
Lab Data
Lab Results
04/25/25 05:51
04/25/25 05:51
PT 15.2 Sec (11.4-14.6) H 04/24/25 12:01
INR 1.14 04/24/25 12:01
Estimated Creat Clear 115 ml/min 04/25/25 05:51
Lactic Acid 0.7 mmol/L (0.7-2.0) 04/24/25 05:53
Total Bilirubin 0.5 mg/dl (0.2-1.3) 04/24/25 05:53
AST 25 U/L (17-59) 04/24/25 05:53
ALT 21 U/L (0-50) 04/24/25 05:53
Alkaline Phosphatase 103 U/L (38-126) 04/24/25 05:53
Most recent labs reviewed.
Micro Results:
04/25/25 09:23 Respiratory Culture - Pending
Bronch Right Middle Lobe Gram Stain - Preliminary
04/25/25 09:23 Fungal Culture - Preliminary
Bronch Right Middle Lobe Culture in progress.
Positive cultures are reported as soon as detected.
Final report to follow in four to five weeks.
04/25/25 09:24 Acid Fast Bacilli Smear - Pending
Bronch Right Middle Lobe Acid Fast Bacilli Culture - Pending
04/25/25 09:24 Respiratory Virus Culture - Pending
Bronch Right Middle Lobe
04/24/25 09:37 Blood Culture - Preliminary
Blood/Venous No Growth in 24 hours- Final report to follow
04/24/25 05:59 Blood Culture - Preliminary
Blood/Venous No Growth in 24 hours- Final report to follow
04/24/25 05:54 Blood Culture - Preliminary
Blood/Venous No Growth in 24 hours- Final report to follow
04/24/25 05:53 Blood Parasites Smear - Final
Blood/Venous
04/24/25 06:45 Influenza Types A & B (LI) - Final
Nasal Swab Negative for Influenza A & B, NAAT
Negative results must be combined with clinical observations
and patient history.
Nucleic Acid Amplification test (NAAT)performed on the
[employer] platform.
Imaging:
04/24/2025 CXR (2 view): lungs are clear. No pleural effusion or pneumothorax.
04/16/2025 CT chest without contrast: small pulmonary nodules seen bilaterally and diffusely more pronounced peripherally. No focal consolidation or pleural effusion. No enlarged hilar or mediastinal adenopathy. Right sided central line with its
tip in the SVC is noted.
Care Review
Plan reviewed with: Physician (Pulmonary)
[2025-04-26] MEDS: D5LR 1000 IV (03:02)
[2025-04-26 07:00] VITALS: BP 113/64
--- NOTE | 2025-04-26 08:54 | W.PN.PUL3 ---
Addendum entered and electronically signed by Benjamín Ha MD 04/26/25 11:26:
55% eosinophils and bronchoalveolar lavage noted
Elevated IgE 219
ANCA pending
Cultures pending
May consider discharging on Pulmicort inhaler 1 puff twice a day in the short-term
Further treatment will be determined at follow-up pulmonary visit depending on pending results
Original Note:
Today's Communication / Plan
-
Check ambulatory saturation
Await bronchoscopy results, can be followed up as an outpatient
Remains off antibiotics
Reviewed in length with mother by phone
Strict instructions to return to the hospital with any recurrence of symptoms
Disposition efforts
Assessment
-
19-year-old non-smoking female to male transition with gender affirming surgery patient with a history of POTS, gastroparesis status post gastric stimulator, scoliosis, recurrent bronchitis presents with a 6-week history of fevers, persistent
nonproductive cough, mild shortness of breath unresponsive to short course of steroids, antibiotics and albuterol-pulmonary consulted for shortness of breath/cough/abnormal CT chest 04/24/2025.
Persistent fever/nonproductive cough with eosinophilia and diffuse pulmonary nodules
Eosinophilia-3500 eosinophils
Numerous pulmonary nodules
s/p bronch 04/25
Chronic cough
Leukocytosis
[id number], [place] 7 years ago
Patient routinely exposed to 1 dog and 2 birds-one of them a cockatiel-for the past 6 years and noted to be healthy
Conditions present prior to admission:
Recent admission 04/17/2025
Female to male transition with gender affirming surgery.
POTS.
Gastroparesis status post gastric stimulator.
Scoliosis.
Central line for tPA over the last 1.5 years.
Recurrent bronchitis.
Cholecystectomy. Gastric stimulator.
Plan/recommendations
At this time, patient appears to be comfortable from a pulmonary standpoint.
Chest exam with minimal wheeze on forced expiration. Denies hemoptysis.
Postop procedure chest x-ray and lung images on abdominal CT secondary to lavage, brushing and biopsy, expected findings
It is noted that patient has not had a fever since 04/24
Patient's fevers and nonproductive cough likely related to his eosinophilia/multiple pulmonary nodules-differential includes unlikely neoplasia, allergies, [place]'s, eosinophilic pneumonitis, collagen vascular including EGPA-eosinophilic
granulomatosis with polyangiitis-formerly known as Churg-Ciaran, granulomatosis with polyangiitis-formally called Cyrus's granulomatosis, microscopic polyangiitis, and parasitic and less likely fungal diseases
Moving forward
Check ambulatory saturation on room air
Speech therapy evaluation noted-regular and thin liquids
Infectious disease evaluation ongoing-reviewed with Dr. Mace
Blood cultures negative
Stool for ova and parasites-pending
Strongyloides serology-Pending
Lyme screen-negative
Rickettsial antibodies -pending.
Blood cultures negative.
Blood-parasite smear-no parasites seen.
Echocardiogram 04/24/25-EF 54%, no significant valvular disease, PA systolic 23
Bronchoscopy 04/25/25-BAL and transbronchial biopsy-hazy fluid, WBC elevated 679,250, 55% eosinophils, 38% macrophages..
Bronchoscopy 04/25/25-RSV cultures-pending, AFB smear and cultures-pending, fungal smears and cultures pending
Bronchoscopy 04/25/25- BAL-cytology pending.
Bronchoscopy 04/25/25-transbronchial biopsy-pending
IgE-pending.
Proteinase 3 antibody-pending.
Myeloperoxidase antibody-pending
All of these can be followed up as an outpatient
Bedside spirometry 04/24/25-FEV1 2.71 L-81%, FVC 3.6-94%-mild obstruction
Avoid steroids for now, would wait for bronchoscopy results
Immunoglobulin levels--IgA, IgG and IgM-normal.
CT abdomen and pelvis unremarkable
Ultimately, if no obvious infections are found, then a course of steroids may be in order-the patient reports being briefly on steroids not high-dose without significant benefit
This can be determined as an outpatient
I reviewed with the patient and mother by phone 04/26/2025
If patient were to develop recurrent fevers, he may require reevaluation and more attention to PICC line per infectious disease
Otherwise maintain and keep pulmonary appointment as detailed in discharge instructions
Disposition efforts
Diagnostic data:
Chest x-ray 05/11/2024-left PICC line, no parenchymal opacification
Chest x-ray 04/16/2025-NAD
Chest x-ray 04/24/2025-NAD
CT 04/16/2025-small pulmonary nodules seen bilaterally and diffusely more pronounced peripherally
Subjective Data
-
Date of Service:
Date of Service: April 26, 2025
Chief Complaint: Pulmonary Follow Up and Dyspnea Follow Up
Subjective:
Patient is without complaints. He does have a mild cough. No fevers since 04/24. He denies chest pain, hemoptysis.
Objective Data
Data Reviewed
Vital Signs / I&O / Oxygen:
Vital Signs
Temp Pulse Resp BP Pulse Ox
98.3 F 78 16 113/64 98
04/26/25 07:00 04/26/25 07:00 04/26/25 07:00 04/26/25 07:00 04/26/25 07:00
Intake and Output
04/25/25 04/26/25 04/27/25
06:59 06:59 06:59
Intake Total 900 / 900 2200 / 2200 660 / 660
Balance 900 / 900 2200 / 2200 660 / 660
SaO2 98
Physical Exam
General: Comfortable
HEENT: Normocephalic, Anicteric and Moist Mucous Membranes
Cardiovascular: Regular Rhythm and Murmur (n)
Respiratory: Wheeze ( forced end expiratory), Crackles (n), Rhonchi (n), Non-Labored Respirations and Stridor (n)
GI: Soft, Non Distended and Non Tender
Neurology: Awake, Alert and No Motor Deficits
Skin: Warm, Good Color, Cyanosis (n), Jaundice (n) and Rash (n)
Labs/Micro/Reports
Microbiology
04/24/25 05:54 Blood/Venous Blood Culture - Preliminary
No Growth in 48 hours- Final report to follow
04/24/25 05:59 Blood/Venous Blood Culture - Preliminary
No Growth in 48 hours- Final report to follow
04/25/25 09:23 Bronch Right Middle Lobe Gram Stain - Preliminary
04/25/25 09:23 Bronch Right Middle Lobe Fungal Culture - Preliminary
Culture in progress.
Positive cultures are reported as soon as detected.
Final report to follow in four to five weeks.
04/24/25 09:37 Blood/Venous Blood Culture - Preliminary
No Growth in 24 hours- Final report to follow
04/24/25 05:53 Blood/Venous Blood Parasites Smear - Final
04/24/25 06:45 Nasal Swab Influenza Types A & B (LI) - Final
Negative for Influenza A & B, NAAT
Negative results must be combined with clinical observations
and patient history.
Nucleic Acid Amplification test (NAAT)performed on the
[employer] platform.
[2025-04-26 09:08] LABS: Blood Urea Nitrogen 8 mg/dl (9-20); Calcium 8.9 mg/dl (8.4-10.2); Carbon Dioxide 27 mmol/L (22-30); Chloride 108 mmol/L (98-107); Estimated Creatinine Clearance > 125 ml/min; Glucose 107 mg/dl (70-99); Hematocrit 32.5 % (39.0-52.0); Hemoglobin 10.9 g/dL (13.0-18.0); Magnesium 1.9 mg/dl (1.6-2.3); Mean Corp Hgb Conc. 33.5 g/dL (33.0-37.0); Mean Corpuscular Volume 84.0 fL (80.0-94.0); Platelet Count 241 10^3/uL (130-400); Potassium 3.9 mmol/L (3.5-5.1); Red Cell Dist. Width 12.4 % (11.5-14.5); Sodium 140 mmol/L (135-145); eGFR > 60.00
--- NOTE | 2025-04-26 10:15 | W.PN.HOSP.TC ---
Today's Communication/Plan
-
see A/P
Pt would like to be discharged, plan for DC if cleared by ID
Assessment / Plan
Assessment / Plan
19 yo male with h/o pots, gastroparesis, gender affirming surgery who has been dependent on TPN via PICC line for the past one year, recent admission for fever in setting of persistent non-productive cough; p/w fever. He had negative blood cultures,
negative infectious w/u with elevated inflammatory markers (ESR/CRP). He is s/p azithromycin x 5 days and now returns with fever to 102, ongoing non-productive cough and leukocytosis. His exam is benign. He is non-toxic appearing and has no rash.
CT did show multiple bilateral pulmonary nodules predominantly peripherally. The etiology is uncertain and this could be infectious.
Impression
Recurrent fever.
Night sweats.
Nonproductive cough
Leukocytosis with eosinophilia.
SIRS
Recent hospitalization and treatment for ICU and community-acquired pneumonia
Gastroparesis
Right chest central line
Nightly TPN infusion
POTS
Plan:
Reported fevers as outpatient, leukocytosis with eosinophilia
Chronic nonproductive cough mostly when lying down and at night.
Recently hospitalized and treated for ?community-acquired bronchitis/pneumonia
Chest CT with multiple bilateral pulmonary nodules predominantly peripherally.
Differential diagnosis besides the community acquired pneumonia, ?Bronchiectasis, chronic aspiration (risk with gastroparesis), CHERYLE/NTM, line infection.
Viral panel negative recently.
Chlamydia serology negative.
Blood cultures negative currently. Repeat blood culture from the port negative.
Tickborne pathogen serology pending
Check stool for ova and parasites, not able to obtain as pt has not had BM
Check strongyloidiasis serology
s/p bronch 04/24: No secretions. Airway anatomy normal. Right middle lobe BAL completed, sent for cytology, AFB, fungal, bacterial culture, viral culture, PJP, parasites, cell count with differential. Right middle lobe brushing sent for cytology and
AFB/fungal/bacterial culture. Right middle lobe and right lower lobe transbronchial biopsies obtained sent for histopathology
SPL cleared for Regular, Thin Liquids, ordered. Pt states that he cannot generally tolerate solid and would throw up.
Echo largely unrevealing: EF 54 %
CT AP unrevealing
ID/pulmonology on board
Monitor temperature curve off antibiotics
Recc outpt rheum eval at a tertiary center
DW father at bedside
DW Pulm
DW ID
Anticipated Discharge: Today
Subjective/Interval History
-
Date of Service: April 26, 2025
Objective Data
-
Labs:
Laboratory Results
04/26/25
07:40
WBC 10.8
Hgb 10.9 L
Hct 32.5 L
Plt Count 241
Sodium 140
Potassium 3.9
Chloride 108 H
Carbon Dioxide 27
BUN 8 L
Creatinine 0.7
Glucose 107 H
Calcium 8.9
Vital Signs:
Vital Signs
Temp Pulse Resp BP Pulse Ox
36.8 C 78 16 113/64 98
04/26/25 07:00 04/26/25 07:00 04/26/25 07:00 04/26/25 07:00 04/26/25 07:00
I&O
04/25/25 04/26/25 04/27/25
06:59 06:59 06:59
Intake Total 900 / 900 2200 / 2200 660 / 660
Balance 900 / 900 2200 / 2200 660 / 660
Review of Systems
-
History Source: Patient
Constitutional: Reports Fever (recurrent)
Physical Exam
-
General: Well Developed, Well Nourished, No Apparent Distress, Comfortable and Conversant
HEENT: Normocephalic, Atraumatic and Moist Mucous Membranes
Respiratory: Clear to Auscultation and Non Labored Respirations; Negative Accessory Resp Muscle Use
Cardiac: Regular Rhythm and S1/S2; Negative Murmur, Rub or Gallop
GI: Soft, Nontender, Nondistended and Normal Bowel Sounds; Negative Organomegaly
Rectal: Deferred by Provider
Musculoskeletal: No Clubbing, No Cyanosis and No Edema
Skin: Warm and Dry; Negative Rash
Neuro: Awake and Alert
Psych: Calm and Intact Judgement/Insight
Data Reviewed
-
Labs: Labs Reviewed by me
--- NOTE | 2025-04-26 11:19 | W.PN.ID1 ---
Date of Service
Date of Service: April 26, 2025
Today's Communication
Observing off abx.
OK to dc home. F/U Rheum and Pulmonary.
Assessment / Plan
Fever - resolved
Leukocytosis - resolved
Cough (persistent)
Pulmonary nodules
Eosinophilia - peripheral and in pulmonary
POTS
Gastroparesis; on nightly TPN
Scoliosis
Recommendations:
Patient is status post bronchoscopy. BAL 679,250 WBC, 55% eosinophils. Path/cytology pending.
At present, no clear ID etiology for fever and leukocytosis.
Blood cultures while off of antibiotics have been obtained (both peripheral and 1 from PICC line), both neg to date.
Bronch: sputum cx neg. AFB, fungal cx pending.
Bronch stool O+P pending
Serum Strongyloidiasis serology pending
Observing off abx.
OK to nd home. F/U Rheum and Pulmonary.
Chief Complaint
-: Fever
Subjective / Review of Systems
Feels better without fever. Cough stable. Will like to go home.
Father at bedside.
Vital Signs / Physical Exam
Vital Signs
Vital Signs
Temp Pulse Resp BP Pulse Ox
98.3 F 78 16 113/64 98
04/26/25 07:00 04/26/25 07:00 04/26/25 07:00 04/26/25 07:00 04/26/25 07:00
Physical Exam
Constitutional: No Acute Distress and Comfortable
Eyes: No Conjunctival Hemorrhage
Cardiovascular: S1/S2; Negative S3/S4
Pulmonary: Clear and Non Labored
Gastrointestinal: Soft, Non Tender and Non Distended
Extremities: Negative Edema
Neurological: AO x 3
Lines: PICC (tunneled right ACW PIC; no erythema or tenderness)
Objective Data
Lab Data
Lab Results
04/26/25 07:40
04/26/25 07:40
ESR 29 mm/hour (0-20) H 04/25/25 05:51
PT 15.2 Sec (11.4-14.6) H 04/24/25 12:01
INR 1.14 04/24/25 12:01
Estimated Creat Clear > 125 ml/min 04/26/25 07:40
Lactic Acid 0.7 mmol/L (0.7-2.0) 04/24/25 05:53
Total Bilirubin 0.5 mg/dl (0.2-1.3) 04/24/25 05:53
AST 25 U/L (17-59) 04/24/25 05:53
ALT 21 U/L (0-50) 04/24/25 05:53
Alkaline Phosphatase 103 U/L (38-126) 04/24/25 05:53
Most recent labs reviewed.
Micro Results:
04/25/25 09:23 Respiratory Culture - Preliminary
Bronch Right Middle Lobe NO GROWTH
Gram Stain - Preliminary
04/24/25 09:37 Blood Culture - Preliminary
Blood/Venous No Growth in 48 hours- Final report to follow
04/24/25 05:54 Blood Culture - Preliminary
Blood/Venous No Growth in 48 hours- Final report to follow
04/24/25 05:59 Blood Culture - Preliminary
Blood/Venous No Growth in 48 hours- Final report to follow
04/25/25 09:23 Fungal Culture - Preliminary
Bronch Right Middle Lobe Culture in progress.
Positive cultures are reported as soon as detected.
Final report to follow in four to five weeks.
04/25/25 09:24 Acid Fast Bacilli Smear - Pending
Bronch Right Middle Lobe Acid Fast Bacilli Culture - Pending
04/25/25 09:24 Respiratory Virus Culture - Pending
Bronch Right Middle Lobe
04/24/25 05:53 Blood Parasites Smear - Final
Blood/Venous
04/24/25 06:45 Influenza Types A & B (LI) - Final
Nasal Swab Negative for Influenza A & B, NAAT
Negative results must be combined with clinical observations
and patient history.
Nucleic Acid Amplification test (NAAT)performed on the
[employer] platform.
Imaging:
04/24/2025 CXR (2 view): lungs are clear. No pleural effusion or pneumothorax.
04/16/2025 CT chest without contrast: small pulmonary nodules seen bilaterally and diffusely more pronounced peripherally. No focal consolidation or pleural effusion. No enlarged hilar or mediastinal adenopathy. Right sided central line with its
tip in the SVC is noted.
Care Review
Plan reviewed with: Physician (Dr. Lowe)
[2025-04-26 11:27] LABS: Nucleated Red Blood Cells % 0 % (-)
--- NOTE | 2025-04-26 11:27 | W.PN.UPDATE ---
Update Note
Progress Note Update
55% eosinophils and bronchoalveolar lavage noted
Elevated IgE 219
ANCA pending
Cultures pending
May consider discharging on Pulmicort inhaler 1 puff twice a day in the short-term
Further treatment will be determined at follow-up pulmonary visit depending on pending results
--- NOTE | 2025-04-26 12:37 | W.DCSUMMARY ---
Discharge Summary
Discharge Data
Date of Admission: 04/24/25
Date of Discharge: 04/26/25
Total time spent discharging patient (in min): 40
-
Pending Results: No
Hospital Course
Principal Diagnosis:
Recurrent fever with night sweats and eosinophilia, unclear etiology
Chronic Diagnoses:�
Gender affirming surgery
Recent hospitalization and treatment for ICU and community-acquired pneumonia
Gastroparesis
Right chest central line for nightly TPN infusion
POTS
Consultations:�
Pulmonary
Infectious disease
Procedures:�
Bronchoscopy
Clinical course:�
This is a 19-year-old male with history as stated above, who presented with recurrent fever, night sweats and eosinophilia.
He was recently admitted for presumed pneumonia, and completed antibiotics.
Problem 1:
Recurrent fever with night sweats and eosinophilia, unclear etiology.
His chest CT showed multiple bilateral pulmonary nodules predominantly peripherally.
He underwent bronchoscopy this admission, which was largely unrevealing: no secretions, airway anatomy normal. Right middle lobe BAL completed, and was sent for cytology, AFB, fungal, bacterial culture, viral culture, PJP, parasites, cell count with
differential, and right middle lobe brushing sent.
He can follow-up these results outpatient with pulmonary.
Of note, his Chlamydia serology was negative, blood cultures including from the port were negative, his CT AP was negative, Echo was largely unrevealing (EF 54 %).
He has been informed to follow up the following sent out test outpatient: ANCA (PR3 and MPO) antibody, Tickborne pathogen (ehrlichia, Rickettsia) serology, Strongyloidiasis serology.
He was cleared by ID and pulmonary for discharge.
He was also recommended to follow-up with rheumatology at a tertiary center.
As for the rest of his medical problems, they were stable during his hospital stay.
Discharge Plan
-
Patient Disposition: Home (Routine Discharge)
Discharge Diagnosis/Procedures: recurrent fever with eosinophilia (unclear cause)
Condition: Fair
Diet: As tolerated
Activity: As tolerated
Driving Restrictions: As prior to admission
Blood Work: CBC with diff in 1 week, result to PCP
Activity Restrictions/Additional Instructions:
follow up the following:
ANCA (PR3 and MPO) antibody,
Tickborne pathogen (ehrlichia, Rickettsia) serology,
Strongyloidiasis serology,
Bronchoscopy cytology, AFB, fungal, bacterial culture, viral culture, PJP, parasites,
Follow up with a motor vehicle field representative outpatient
Referrals:
Maria Larsen DO [Active, Pulmonary Medicine] - in one to two weeks
Referral Note: Or nurse practitioner in the next 2 weeks to review bronchoscopy results
appt on 05/09/25, 2pm
Dahiana Moe MD [Consulting Staff, Rheumatology]
Cornelio Paez DO [Family Provider, Family Practice] - in less than 1 week
Prescriptions:
New
(DME) CBC with differential
See Rx Instructions .Route .MEDSUPPLY Qty: 1 0RF
Rx Instructions:
04/28/2025 to 05/02/2025, result to your PCP
# eosinophilia
Continued
cromolyn 100 mg/5 mL Concentrate
200 mg PO AC
ascorbic acid (vitamin C) [Vitamin C] 500 mg Tablet
500 mg PO DAILY
ferrous sulfate 325 mg (65 mg iron) Tablet
325 mg PO DAILY
testosterone cypionate 200 mg/mL Kit
50 mg IM WE
Discharge Orders:
Discharge Patient (As Directed); Ordered 04/26/25
Ordered By: Rhiannon Lowe
Discharge Date and Time
Discharge Date/Time: 04/26/25 12:20
Print Language: FRISIAN
--- NOTE | 2025-04-26 13:33 | CM ---
Patient has been medically cleared for discharge to home with resumption of self administered TPN. [facility] provides feed solution and equipment. Family will transport home.
[2025-04-27 02:36] LABS: Serine Protease-3, IgG 1 AU/mL (0-19)
[2025-04-27 03:34] LABS: RMSF IgG Antibodies <1:64 (<1:64); RMSF IgM Antibodies <1:64 (<1:64)
== END 2025-04-26 12:20 | disposition home or self-care (01) ==
LOC: 4 WEST ACU 07:21
PROVIDERS: Internal Medicine Critical Care Medicine; Physician Assistant; ADMITTING PHYSICIAN Internal Medicine; ATTENDING PHYSICIAN Internal Medicine; CONSULT PHYSICIAN Internal Medicine Infectious Disease; EMERGENCY PHYSICIAN Emergency Medicine; FAMILY PHYSICIAN Family Medicine; OTHER PHYSICIAN Internal Medicine Critical Care Medicine
PROC: 0BDD8ZX Extraction of Right Middle Lung Lobe, Via Natural or Artificial Opening Endoscopic, Diagnostic (ICD-10-PCS; 2025-04-25)
PROC: 0B9D8ZX Drainage of Right Middle Lung Lobe, Via Natural or Artificial Opening Endoscopic, Diagnostic (ICD-10-PCS; 2025-04-25)
PROC: 0BBD8ZX Excision of Right Middle Lung Lobe, Via Natural or Artificial Opening Endoscopic, Diagnostic (ICD-10-PCS; 2025-04-25)
PROC: 0BBF8ZX Excision of Right Lower Lung Lobe, Via Natural or Artificial Opening Endoscopic, Diagnostic (ICD-10-PCS; 2025-04-25)
DX: R50.9 Fever, unspecified (principal); D72.19 Other eosinophilia; R61 Generalized hyperhidrosis; F64.0 Transsexualism; G90.A Postural orthostatic tachycardia syndrome [POTS]; K31.84 Gastroparesis; M41.9 Scoliosis, unspecified; Z11.52 Encounter for screening for COVID-19; R91.8 Other nonspecific abnormal finding of lung field; R05.3 Chronic cough; Z87.01 Personal history of pneumonia (recurrent)
CPT/HCPCS: 31628; 31624; 31623; 31632; 71045; 71046; 74177; 76000; 80048; 80053; 82784; 82785; 83516; 83605; 83735; 85025; 85027; 85610; 85652; 86618; 86757; 87015; 87040; 87070; 87102; 87116; 87205; 87207; 87252; 87468; 87484; 87502; 87798; 87811; 88112; 88305; 88312; 88341; 88342; 89051; 92610; 93306; 94010; 96365; 96366; 99285; G0378; Q9967